=== PATIENT | female | born 1940 | race Caucasian/White ===

== ENCOUNTER 2017-05-03 15:30 | Inpatient (IN) | payer OTHER, BC ==
--- NOTE | 2017-05-03 15:47 | EDPHY ---
H & P Time Seen by Provider: 05/03/17 15:46 HPI/ROS: CHIEF COMPLAINT: Cough HISTORY OF PRESENT ILLNESS: 77 y/o female presents with a chief complaint of worsening cough for 1 month. 1 month ago she moved to [place] from [place]. Since arrival, she has developed a frequent cough, productive of greenish sputum. Yesterday, she was diagnosed with bronchitis at [facility] urgent care. Apparently, chest x-ray yesterday was negative for pneumonia. She received a prescription for penicillin and for albuterol. Since then, she continues to have a frequent cough, which keeps her awake at night. Associated with mild shortness of breath. Denies fever, chills, chest pain or other pertinent symptoms. REVIEW OF SYSTEMS: Aside from elements discussed in the HPI, a comprehensive 10-point review of systems was reviewed and is negative. Past Medical/Surgical History: Sciatica, hypertension, breast cancer, multiple back surgeries, pneumonia Social History: at bedside, moved to [place] from [place], former smoker Smoking Status: Former smoker Physical Exam: General Appearance: Alert, pleasant and talkative Eyes: Pupils equal and round, no conjunctival pallor or injection ENT, Mouth: Mucous membranes moist Neck: Normal inspection Respiratory: Normal respiratory rate, Diffuse respiratory wheezing Cardiovascular: Regular rate and rhythm Gastrointestinal: Abdomen is soft and non-tender Neurological: A&O, nonfocal, normal gait Skin: Warm and dry, no rash Extremities: Nontender, no pedal edema Psychiatric: Mood and affect normal Constitutional: Initial Vital Signs Temperature (C) 37.3 C 05/03/17 15:36 Heart Rate 100 05/03/17 15:36 Respiratory Rate 20 05/03/17 15:36 Blood Pressure 146/99 H 05/03/17 15:36 O2 Sat (%) 98 05/03/17 15:36 O2 Delivery Mode Nasal Cannula O2 (L/minute) 3 Allergies/Adverse Reactions: Sulfa (Sulfonamide Antibiotics) [Sulfa(Sulfonamide Antibiotics)] Allergy ( Unknown, Verified 05/03/17 15:33) Hives bupropion [From Wellbutrin] Allergy (Verified 05/03/17 15:33) Home Medications: Medication Instructions Recorded Albuterol [Ventolin Hfa Inhaler] 2 puffs IH Q4-6PRN PRN 05/03/17 CYCLOBENZAPRINE HCL [Flexeril] 5 mg PO HS 05/03/17 Desvenlafaxine Succinate [Pristiq] 100 mg PO DAILY 05/03/17 Fluticasone Hfa 110 Mcg [Flovent 2 puffs IH BID 05/03/17 110 MCG Hfa MDI (*)] Gabapentin [Neurontin 300 MG (*)] 300 mg PO BID@09,14 05/03/17 Gabapentin [Neurontin 300 MG (*)] 900 mg PO HS 05/03/17 HYDROcodone/APAP [[place] 1 - 2 tab PO Q6 PRN 05/03/17 (*)] LORazepam [Ativan (*)] 0.5 mg PO HS 05/03/17 Lisinopril [Zestril 40 mg (*)] 40 mg PO DAILY 05/03/17 Penicillin V Potassium [Penicillin 500 mg PO BID 05/03/17 VK] Pravastatin Sodium [Pravachol] 80 mg PO HS 05/03/17 amLODIPine BESYLATE [Norvasc 5 mg 5 mg PO DAILY 05/03/17 (*)] Azithromycin [Zithromax] 250 mg PO DAILY #2 tab 05/06/17 Benzonatate [Tessalon Pearles] 200 mg PO TID PRN #14 cap 05/06/17 predniSONE 40 mg PO DAILY #6 tablet 05/06/17 Medical Decision Making - Diagnostics EKG Interpretation: EKG interpreted by me reveals normal sinus rhythm with a rate of 98, normal axis , normal intervals, diffuse ST segment changes, and T segment normal. Interpretation: normal EKG Imaging Results: Chest x-ray discussed with the radiologist reveals a 4 cm left lower lobe mass. No infiltrate. Imaging: Discussed imaging studies w/ body maker Radiologist, I viewed and interpreted images myself ED Course/Re-evaluation: The patient is a 77 y/o female presenting with a worsening cough for several weeks. On exam she has diffuse respiratory wheezing. A DuoNeb was given. Prednisone 60 mg orally. EKG reveals no evidence of ischemia or dysrhythmia. She continues to have diffuse wheezing after the 1st DuoNeb. An albuterol nebulized treatment was given. 1700: Oxygen saturation 87% after 2 nebulizer treatments. Chest x-ray ordered. 1702: Chest x-ray results discussed the patient and her . They aware of the right lower lobe mass and need for further follow-up. She remains hypoxic, with an oxygen saturation of 86% on room air. Oxygen applied. She is a long-time smoker and probably has underlying COPD. She will need to be admitted for hypoxia and COPD exacerbation. 1759: Reassessed patient and discussed plan for admission. Patient and her are comfortable with this plan. 1800: Consulted with hospitalist service, Dr. Davis accepts admission of this patient. The patient remained stable throughout her emergency department stay. She felt much better on oxygen, though continued to have diffuse wheezing and bronchospasm. Differential Diagnosis: Differential diagnosis includes though it is not limited to pneumonia, pneumothorax, pulmonary embolism, aortic dissection, pericarditis, acute coronary syndrome. - Data Points Laboratory Results: Laboratory Results 05/03/17 16:00 05/03/17 16:00 Medications Given: Discontinued Medications Hydrocodone Bitart/Acetaminophen ([place] 10/325) 1 - 2 tab PO Q6 PRN PRN Reason: Pain, Severe Stop: 05/13/17 21:32 Last Admin: 05/04/17 23:07 Dose: 2 tab Albuterol (Proventil Neb) 3 ml IH EDNOW ONE Stop: 05/03/17 16:37 Last Admin: 05/03/17 16:38 Dose: 3 ml Albuterol (Proventil Neb) 3 ml IH EDNOW ONE Stop: 05/03/17 17:03 Last Admin: 05/03/17 17:24 Dose: 3 ml Albuterol (Ventolin Hfa Inhaler) 2 puffs IH Q4 PRN PRN Reason: Wheezing Stop: 10/30/17 21:32 Last Admin: 05/06/17 08:52 Dose: 2 puffs Albuterol/Ipratropium (Duoneb) 3 ml IH EDNOW ONE Stop: 05/03/17 16:12 Last Admin: 05/03/17 16:20 Dose: 3 ml Amlodipine Besylate (Norvasc) 5 mg PO DAILY ASTRID Stop: 10/31/17 11:44 Last Admin: 05/06/17 09:20 Dose: 5 mg Azithromycin (Zithromax) 250 mg PO DAILY ASTRID PRN Reason: Protocol Stop: 06/03/17 08:59 Last Admin: 05/06/17 09:21 Dose: 250 mg Cyclobenzaprine HCl (Flexeril) 5 mg PO HS ASTRID Stop: 10/30/17 21:59 Last Admin: 05/05/17 20:44 Dose: 5 mg Enoxaparin Sodium (Lovenox) 40 mg SC DAILY ASTRID Stop: 10/31/17 08:59 Last Admin: 05/06/17 09:20 Dose: 40 mg Fentanyl (Sublimaze) 0 mcg IVP ONCALL PRN PRN Reason: Per provider during procedure Stop: 05/05/17 10:40 Last Admin: 05/05/17 10:08 Dose: 50 mcg Fluticasone Propionate (Flovent Hfa) 2 puffs IH BID ASTRID Stop: 10/31/17 08:59 Last Admin: 05/06/17 08:52 Dose: 2 puffs Gabapentin (Neurontin) 900 mg PO HS ASTRID Stop: 10/30/17 21:44 Last Admin: 05/05/17 20:43 Dose: 900 mg Gabapentin (Neurontin) 300 mg PO BID@09,14 ASTRID Stop: 10/31/17 08:59 Last Admin: 05/06/17 09:20 Dose: 300 mg Sodium Chloride (Ns) 1,000 mls @ 30 mls/hr IV CONT ASTRID Stop: 11/01/17 09:44 Last Admin: 05/05/17 10:10 Dose: 1,000 mls Lisinopril (Zestril) 40 mg PO DAILY ASTRID Stop: 10/31/17 08:59 Last Admin: 05/06/17 09:20 Dose: 40 mg Lorazepam (Ativan) 0.5 mg PO HS ASTRID Stop: 10/31/17 20:59 Last Admin: 05/05/17 20:44 Dose: 0.5 mg Midazolam HCl (Versed) 0 mg IVP ONCALL PRN PRN Reason: Per provider during procedure Stop: 05/05/17 10:40 Last Admin: 05/05/17 10:07 Dose: 1 mg Miscellaneous Medication (Desvenlafaxine Succinate [Pristiq]) 100 mg PO DAILY ASTRID Stop: 10/31/17 08:59 Last Admin: 05/06/17 09:21 Dose: 100 mg Pravastatin Sodium (Pravachol) 80 mg PO HS ASTRID Stop: 10/30/17 21:44 Last Admin: 05/05/17 20:43 Dose: 80 mg Prednisone (Prednisone) 60 mg PO EDNOW ONE Stop: 05/03/17 16:12 Last Admin: 05/03/17 16:20 Dose: 60 mg Prednisone (Prednisone) 40 mg PO DAILY ASTRID Stop: 10/31/17 08:59 Last Admin: 05/06/17 09:20 Dose: 40 mg Departure - Departure Disposition: [facility] Inpatient Acute Clinical Impression: Bronchospasm, Chronic obstructive pulmonary disease with acute exacerbation Acute bronchitis Qualifiers: Bronchitis organism: other organism Qualified Code(s): J20.8 - Acute bronchitis due to other specified organisms Condition: Fair Report Scribed for: Minerva Villatoro Report Scribed by: Deana Dominguez Date of Report: 05/03/17 Time of Report: 15:47 Physician Review and Approval Statement: 05/03/17 15:47 Portions of this note were transcribed by a vp medical. I personally performed a history, physical exam, medical decision making, and confirmed accuracy of information the transcribed note.
[2017-05-03] MEDS ORDERED: IPRATROPIUM/ALBUTEROL 3 ML DEYVIAL ONE (15:53)
--- NOTE | 2017-05-03 16:01 | CPEKG ---
Heart Rate: 98 RR Interval: 612 P-R Interval: 116 QRSD Interval: 84 QT Interval: 360 QTC Interval: 460 P Rippey: 0 QRS Rippey: 37 T Wave Rippey: 148 EKG Severity - ABNORMAL ECG - EKG Impression: SINUS RHYTHM EKG Impression: REPOL ABNRM SUGGESTS ISCHEMIA, DIFFUSE LEADS EKG Impression: Similar to EKG in December 2011 Electronically Signed By: Minerva Villatoro 03-May-2017 21:32:27
[2017-05-03] MEDS ORDERED: predniSONE 20 MG TAB PO ONE (16:11)
[2017-05-03] MEDS ORDERED: IPRATROPIUM/ALBUTEROL 3 ML DEYVIAL IH ONE (16:11)
[2017-05-03] MEDS ORDERED: ALBUTEROL 3 ML DEYVIAL IH ONE ×2 (16:36→17:02)
[2017-05-03 17:12] LABS: % IMMATURE GRANULYOCYTES 0.4 % (0.0-1.1); ABSOLUTE IMMATURE GRANULOCYTES 0.04 10^3/uL (0.00-0.10); ADD DIFF? NO; ADD MORPH? NO; ADD SCAN? NO; ATYPICAL LYMPHOCYTE FLAG 0 (0-99); FRAGMENT RBC FLAG 0 (0-99); HEMOGLOBIN 14.6 g/dL (12.6-16.3); LEFT SHIFT FLG 0 (0-99); LIPEMIA HEMOLYSIS FLAG 80 (0-99); MEAN CELL HEMOGLOBIN 29.1 pg (27.9-34.1); MEAN CELL HEMOGLOBIN CONCENTR. 33.2 g/dL (32.4-36.7); MEAN CELL VOLUME 87.8 fL (81.5-99.8); PLATELET CLUMPS FLAG 0 (0-99); PLATELET COUNT 344 10^3/uL (150-400); RED BLOOD CELL COUNT 5.01 10^6/uL (4.18-5.33); RED CELL DISTRIBUTION WIDTH 14.3 % (11.5-15.2)
[2017-05-03 17:15] LABS: ANION GAP 13 mEq/L (8-16); CALCIUM 9.6 mg/dL (8.5-10.4); CARBON DIOXIDE 23 mEq/l (22-31); CHLORIDE 104 mEq/L (97-110); CREATININE 0.9 mg/dL (0.6-1.0); GLOMERULAR FILTRATION RATE > 60; GLUCOSE 94 mg/dL (70-100); SODIUM 140 mEq/L (134-144)
[2017-05-03] MEDS ORDERED: ONDANSETRON 4 MG/2 ML VIAL IVP PRN (18:00)
[2017-05-03] MEDS ORDERED: ONDANSETRON DISINTEGRATING 4 MG TAB PO PRN (18:00)
[2017-05-03] MEDS ORDERED: ACETAMINOPHEN 325 MG TAB PO PRN (18:00)
[2017-05-03] MEDS ORDERED: IPRATROPIUM/ALBUTEROL 3 ML DEYVIAL IH PRN (18:01)
[2017-05-03] MEDS ORDERED: IOPAMIDOL (ISOVUE-300) 100 ML BTL ONE (18:04)
[2017-05-03] MEDS ORDERED: BENZONATATE 100 MG CAP PO PRN (19:19)
--- NOTE | 2017-05-03 20:27 | GHP ---
[f rep st] HISTORY AND PHYSICAL DATE OF ADMISSION: 05/03/2017 CHIEF COMPLAINT: Shortness of breath, cough. HISTORY OF PRESENT ILLNESS: A 77-year-old female with a history of hypertension , breast cancer, status post XRT and lumpectomy, presenting with worsening cough for several weeks. She moved here from [place] 1 month ago. Noted a cough prior to the move. Has developed greenish-yellow sputum this past week. Seen at [facility] yesterday and diagnosed with bronchitis. Was prescribed inhalers and PCN. Denies fevers, chills, or sweats. No nausea, vomiting. Had an episode of diarrhea today after taking penicillin. She is to see a cancer specialist in [place] per referral from [facility] for kidney cancer. She was unclear if it was actually her kidney or her urethra. No weight loss or gain. Normal appetite. REVIEW OF SYSTEMS: I completed a 10-point review of systems. Negative, except as noted in HPI. PAST MEDICAL HISTORY: 1. Hypertension. 2. Anxiety/depression. 3. Hyperlipidemia. 4. Sciatica. 5. History of breast cancer, status post left-sided lumpectomy and XRT. 6. Renal cancer, unclear type. Appt this month in [place]. PAST SURGICAL HISTORY: 1. Left ankle, right femur with hardware that was revised. 2. L4-L5. 3. A breast reduction. 4. Left breast lumpectomy. FAMILY HISTORY: Mother with hypertension. Dad with hypertension. SOCIAL HISTORY: Smoked less than half-a-pack a day for 50 years; now smoking half-a-pack a day. Minimal alcohol. No drugs. Just moved here from [place] with her . They live in an apartment here in [place] to be closer to kids and grandchildren. HOME MEDICATIONS: 1. Norvasc 5 mg daily. 2. Flovent 2 puffs inhaled b.i.d. 3. Gabapentin 900 mg q.h.s. 4. Flexeril as needed. 5. Lisinopril 40 mg daily. 6. Ativan 0.5 mg q.h.s. 7. [place] 10/325 one to two tabs p.o. q.6 hours p.r.n. 8. Gabapentin 300 mg b.i.d. 9. Penicillin. 10. Pravastatin 80 mg q.h.s. 11. Pristiq 100 mg daily. 12. Albuterol. ALLERGIES: Sulfa, Wellbutrin. PHYSICAL EXAMINATION: VITAL SIGNS: Temperature 36.7, blood pressure 104/69, heart rate 90, respirations 24, 87% on room air, 94% on 3 L. GENERAL: Sitting up in bed in no acute distress. HEENT: PERRLA. EOMI. Oropharynx clear. CV: Regular rate and rhythm. No murmurs, gallops, rubs. LUNGS: Decreased breath sounds throughout with expiratory wheezing and few rhonchi. ABDOMEN: Soft, nontender, nondistended. Positive bowel sounds. : No suprapubic tenderness. MUSCULOSKELETAL: Right hand deformity ( defect). NEUROLOGIC : Cranial nerves 2 through 12 intact. PSYCHIATRIC: Alert and oriented. Very pleasant. LABORATORY DATA: WBC 9, hemoglobin 14, hematocrit 44, platelets 344. Sodium 140, potassium 4.0, chloride 104, carbon dioxide 23, creatinine 0.9, glucose 94. BNP is 138. Chest x-ray, personally reviewed by me: Left lower lobe mass. No evidence of edema or effusion. CT chest, personally reviewed by me: A 4 cm pulmonary mass suspicious for carcinoma. No regional lymphadenopathy or metastatic disease of the chest or upper abdomen. Bronchitis. Three-vessel calcification and an atherosclerotic aorta. ASSESSMENT AND PLAN: 1. Acute chronic obstructive pulmonary disease exacerbation: no formal diagnosis, but suspect, given significant tobacco history. Trigger likely bronchitis, no PNA on imaging. Start prednisone, DuoNeb, and azithromycin. Cough suppressant. 2. Left lung mass: no evidence of metastatic disease in chest or abdomen. She wants to talk with family on timing of biopsy since already dealing with renal cancer.. 3. Renal cancer: unclear whether it is primary kidney or urethral. She has a followup appointment later this month. 4. Hypertension: Resume home medications. 5. Anxiety/depression: Continue home medications. 6. Hyperlipidemia: Statin. 7. Diet: Regular. 8. Deep venous thrombosis prophylaxis: High risk. Lovenox. 9. Goals: I explained the role of Palliative Care given her renal cancer and new lung mass. She would be interested in meeting with a group outpatient, Will have CM arrange. DISPOSITION: The patient warrants observation admission given acute hypoxia, COPD exacerbation, warranting DuoNeb and pulse oximetry. /[id number]/MODL MTDD
[2017-05-03] MEDS ORDERED: amLODIPine BESYLATE 5 MG TAB PO PRN (21:33)
[2017-05-03] MEDS ORDERED: HYDROCODONE/APAP 10/325 TAB PO PRN (21:33)
[2017-05-03] MEDS: PRAVASTATIN SODIUM 40 MG TAB PO SCH (21:46)
[2017-05-03] MEDS: GABAPENTIN 300 MG CAP PO SCH (21:46)
[2017-05-03] MEDS: CYCLOBENZAPRINE 10 MG TAB PO SCH (21:47)
[2017-05-04] MEDS: ALBUTEROL 200 PUFFS/18 GM MDI IH PRN ×2 (08:47→21:27)
[2017-05-04] MEDS: FLUTICASONE HFA 110 MCG MDI IH SCH ×2 (08:55→21:27)
[2017-05-04] MEDS: ENOXAPARIN 40 MG/0.4 ML SYR SC SCH (09:18)
[2017-05-04] MEDS: AZITHROMYCIN 250 MG TAB PO SCH (09:18)
[2017-05-04] MEDS: GABAPENTIN 300 MG CAP PO SCH ×3 (09:19→20:49)
[2017-05-04] MEDS: LISINOPRIL 40 MG TAB PO SCH (09:19)
[2017-05-04] MEDS: predniSONE 20 MG TAB PO SCH (09:19)
[2017-05-04] MEDS: Desvenlafaxine Succinate [Pristiq] 100 MG PO SCH (09:27)
--- NOTE | 2017-05-04 12:25 | PDMN ---
Medical Necessity Medical necessity: Pt meets IP criteria per MD; est los >2 mn for eval/tx of acute hypoxia, COPD exacerbation & L lung mass; hx htn, renal cancer, breast cancer s/p lumpectomy & XRT; per H&P & order 05/03/17
[2017-05-04] MEDS: amLODIPine BESYLATE 5 MG TAB PO SCH (13:24)
--- NOTE | 2017-05-04 13:49 | HOSPPROG ---
Hospitalist Progress Note Assessment/Plan: 77y female with c/o SOB and cough. First encounter, chart reviewed. D/W Dr Julian. #New lung mass per CT consult oncology likely need bx, defer to oncology #COPD exacerbation supportive care prednisone, azithro and duoneb #AHRF cont supplemental oxygen #Hx renal ca follow up scheduled at [place] needs urology #HTN mild elevation cont home meds, norvasc lisinopril consider adding meds if needed #Anxiety/depression cont home meds #Dispo unclear, continue work up in the hospital. consider biopsy if o2 needs improve await oncology consult reviewed with CM pt new to [place], needs to establish care Palliative care outpatient Subjective: Feeling better then yesterday. Still coughing and SOB. Objective: Vital Signs Temp Pulse Resp BP Pulse Ox 36.8 C 88 20 158/91 H 94 05/04/17 11:52 05/04/17 11:52 05/04/17 11:52 05/04/17 11:52 05/04/17 11:52 - Physical Exam Constitutional: appears nourished, not in pain, chronically ill appearing Eyes: PERRL, anicteric sclera, EOMI Ears, Nose, Mouth, Throat: moist mucous membranes, hearing normal, ears appear normal Cardiovascular: regular rate and rhythym, No JVD, No edema Respiratory: no rales or rhonchi, reduced air movement, expiratory wheeze Gastrointestinal: normoactive bowel sounds, No tenderness, No ascites Skin: warm, normal color, No erythema Musculoskeletal: normal joint ROM, no joint effusions, generalized weakness Neurologic: AAOx3 Psychiatric: interacting appropriately, not encephalopathic, thought process linear ICD10 Worksheet Patient Problems: Problems Problem Status Onset Acute bronchitis Acute Bronchospasm Acute Chronic obstructive pulmonary disease with acute exacerbation Acute
[2017-05-04 14:08] LABS: INR 0.99 (0.83-1.16)
[2017-05-04 14:09] LABS: APTT 33.3 SEC (23.0-38.0)
[2017-05-04] MEDS ORDERED: IOPAMIDOL (ISOVUE-300) 100 ML BTL ONE (15:07)
--- NOTE | 2017-05-04 15:36 | GCON ---
[f rep st] CONSULTATION INPATIENT ONCOLOGY CONSULTATION DATE OF CONSULTATION: 05/04/2017 REFERRING PHYSICIAN: Dr. Becker REASON FOR CONSULTATION: Left lower lung mass. HISTORY OF PRESENT ILLNESS: The patient is a 77-year-old woman admitted to the hospital with a COPD exacerbation and viral bronchitis. She has been feeling poorly for a couple of days and was admitted. Chest x-ray showed bronchitis but also a 4 cm left lower lobe mass. A CT chest showed the same mass without evidence of hilar or mediastinal adenopathy. There was coronary artery disease and reactive airway disease. She is feeling somewhat better. Prior to her lung infection, she did not have any symptoms. She does have a remote history of breast cancer in 2000 which was treated with lumpectomy, radiation therapy, and anti-estrogen therapy. Recently, she was noted to have what sounds like a renal cyst. She had a biopsy at [facility], though does not know what the results showed. They did recommend that she follow with a urologist later this month. That problem presented because of some hematuria, which has since resolved. PAST MEDICAL HISTORY: 1. Breast cancer described above. 2. Renal cyst, indeterminate, as described above. CURRENT MEDICATIONS: Albuterol, Norvasc, azithromycin, Tessalon Perles, Flexeril, Lovenox, Neurontin, Zestril, Ativan, Pravachol, prednisone 40 mg daily. ALLERGIES: Sulfa. FAMILY HISTORY: A maternal uncle may have had cancer of some type. SOCIAL HISTORY: She smokes half a pack per day, but says she is quitting. She denies alcohol use. She is . She and her moved here a month ago to live closer to family, including their youngest daughter, who was present for today's visit. REVIEW OF SYSTEMS: Aside from pertinent positives in the HPI, a 14-point review of systems was negative. PHYSICAL EXAMINATION: VITALS: Temperature 36.8, blood pressure 158/91, heart rate 88, oxygen saturation 94% on 3 L. GENERAL: She was chronically ill, breathing comfortably, in no acute distress. HEENT: Sclerae icteric. Oropharynx was clear. NECK: Supple without lymphadenopathy. LUNGS: Scattered wheezes bilaterally and somewhat distant breath sounds. CARDIAC: Regular rate and rhythm. No murmurs, gallops, or rubs. ABDOMEN: Normoactive bowel sounds, nontender, nondistended. EXTREMITIES: Without edema, 2+ pulses. NEUROLOGIC: She was alert and oriented x3. SKIN: No petechiae or purpura. LABORATORY DATA: A CBC and a basic metabolic panel were normal. IMPRESSION: This is a 77-year-old woman, current smoker, who presents with a viral bronchitis and chronic obstructive pulmonary disease flare. She was incidentally noted to have a nearly 4 cm mass in the left lower lobe. This is highly suspicious for bronchogenic carcinoma. It would be a very unusual manifestation for her breast cancer to metastasize 16 years later in this fashion. I do not have complete information on her renal cyst, but that also is not likely to be related to lung cancer. I will get another CT of the abdomen to look for evidence of metastasis and also to better characterize the kidney process. The next step in her care would be to get a biopsy of the tumor. If confirmed, she would need a PET CT scan in the outpatient setting for mediastinal staging, and further therapy such as surgery, radiation, or chemotherapy would be dictated based on the stage of the cancer and its biology. I would like to get the biopsy done while the patient is in the hospital, though she certainly does not need to stay here to await the results. Rather, when she is stable for discharge, she can go home and see me in clinic next week to review the biopsy results. I will also refer to Urology for further evaluation of her renal process. Thank you for this consultation. It was a pleasure to meet the patient, and I appreciate the opportunity to be involved in her care. I will continue to follow the patient with you while she is in the hospital. /[id number]/MODL MTDD
--- NOTE | 2017-05-04 18:11 | ASMTCMCOM ---
CM Note CM Note Notes: Pt. is a 77-year-old woman admitted with shortness of breath and a cough. Experiencing a COPD exascerbation. Hx. renal cell cancer, breast cancer, back surgeries, PNA, anxiety, depression, hyperlipidemia. Pt. is a 1/2 pack a day smoker. Pt. to have a lung biopsy tomorrow to determine if cancer has spread to lung. At request of hospitalist today, SWer met w/ Pt. and family in room to assess for resources. Simone is very organized and pleasant. Daughter Laura present and also very engaged. Pt. and moved to [place] recently from [place] to be closer to family. Pt. and are pleased to have moved and it was not a decision where they felt they had to move. Pt. was getting her care at [facility]. Pt. interested in and provided the following resources today: 1) List of [facility] primary care providers, 2) List of psychiatrists (Pt. has paid out of pocket in past for psychiatry), 3) List of psychotherapists, 4) Information on [facility], and information about [facility]. At Pt's request, referral sent to [facility] via [facility] Pt. and family grateful for resources. Current plan: D/c home w/ outpatient Palliative Care through [facility]. Date Signed: 05/04/2017 06:10 PM Electronically Signed By:Ilene Deshpande LCSW
[2017-05-04] MEDS: CYCLOBENZAPRINE 10 MG TAB PO SCH (20:48)
[2017-05-04] MEDS: PRAVASTATIN SODIUM 40 MG TAB PO SCH (20:50)
[2017-05-04] MEDS: LORazepam 0.5 MG TAB PO SCH (20:50)
[2017-05-05] MEDS: AZITHROMYCIN 250 MG TAB PO SCH (07:14)
[2017-05-05] MEDS: amLODIPine BESYLATE 5 MG TAB PO SCH (07:14)
[2017-05-05] MEDS: LISINOPRIL 40 MG TAB PO SCH (07:14)
[2017-05-05] MEDS ORDERED: NALOXONE HCL 0.4 MG/ML INJ ONE (08:50)
[2017-05-05] MEDS ORDERED: MIDAZOLAM 2 MG/2 ML VIAL ONE (08:51)
[2017-05-05] MEDS ORDERED: fentaNYL 100 MCG/2 ML INJ ONE (08:51)
[2017-05-05] MEDS ORDERED: FLUMAZENIL 0.5 MG/5 ML MDV IVP ONE (08:51)
[2017-05-05] MEDS ORDERED: fentaNYL 100 MCG/2 ML INJ IVP PRN (09:39)
[2017-05-05] MEDS ORDERED: GLUCAGON HCL 1 MG VIAL IVP PRN (09:39)
[2017-05-05] MEDS ORDERED: NALOXONE HCL 0.4 MG/ML INJ IVP PRN (09:39)
[2017-05-05] MEDS ORDERED: MEPERIDINE 25 MG/ML SYR IVP PRN (09:39)
[2017-05-05] MEDS ORDERED: FLUMAZENIL 0.5 MG/5 ML MDV IVP PRN (09:39)
[2017-05-05] MEDS ORDERED: MIDAZOLAM 2 MG/2 ML VIAL IVP PRN (09:39)
[2017-05-05] MEDS ORDERED: ALTEPLASE 2 MG VIAL IVP PRN (09:39)
[2017-05-05] MEDS ORDERED: PROTAMINE SULFATE 50 MG/5 ML VIAL IVP PRN (09:39)
[2017-05-05] MEDS ORDERED: HEPARIN 10,000 UNIT/10 ML MDV IVP PRN (09:39)
[2017-05-05] MEDS ORDERED: NS 1,000 ML IV SCH (09:45)
[2017-05-05] MEDS: FLUTICASONE HFA 110 MCG MDI IH SCH ×2 (10:05→21:27)
--- NOTE | 2017-05-05 10:17 | PDPROPOC ---
Sedation Plan of Care Sedation Plan of Care: vital signs stable, mental status noted, patient educated of risks, benefits, alternatives, patient can tolerate sedation ASA Classification: ASA 3 Planned drugs: fentanyl, midazolam Mallampati Score: Class 4 Mallampati Reference Image: Patient passed 3-3-2 rule?: Yes
--- NOTE | 2017-05-05 10:20 | PDRADPN ---
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 Specimen(s): 20 ga Cores X 6 22 ga FNAB X 1
[2017-05-05] MEDS: Desvenlafaxine Succinate [Pristiq] 100 MG PO SCH (12:12)
[2017-05-05] MEDS: GABAPENTIN 300 MG CAP PO SCH ×3 (12:13→20:43)
[2017-05-05] MEDS: predniSONE 20 MG TAB PO SCH (12:13)
--- NOTE | 2017-05-05 12:56 | HOSPPROG ---
Hospitalist Progress Note Assessment/Plan: Assessment/Plan: 77 y/o female with c/o SOB and cough new to my care 05/05. #New lung mass consult oncology biopsy done today 05/05 #COPD exacerbation with persistent wheezing supportive care prednisone, azithro and duoneb #AHRF cont supplemental oxygen #Hx renal ca follow up scheduled at [place] needs urology #HTN mild elevation cont home meds, norvasc lisinopril consider adding meds if needed #Anxiety/depression cont home meds #Dispo possible dc 05/06 if continues to improve Palliative care outpatient Subjective: still with sweezing and shortness of breath. had biospy today. does not feel strong enough to go home Objective: Vital Signs Temp Pulse Resp BP Pulse Ox 36.6 C 86 16 111/78 83 L 05/05/17 12:11 05/05/17 12:11 05/05/17 12:11 05/05/17 12:11 05/05/17 12:11 PT 13.0 SEC (12.0-15.0) 05/04/17 13:45 INR 0.99 (0.83-1.16) 05/04/17 13:45 - Physical Exam Constitutional: no apparent distress, appears nourished, not in pain Cardiovascular: regular rate and rhythym, no murmur, rub, or gallop Respiratory: reduced air movement, expiratory wheeze, No respiratory distress, No dullness to percussion Gastrointestinal: normoactive bowel sounds, soft, non-tender abdomen, no palpable masses ICD10 Worksheet Patient Problems: Problems Problem Status Onset Acute bronchitis Acute Bronchospasm Acute Chronic obstructive pulmonary disease with acute exacerbation Acute
--- NOTE | 2017-05-05 13:16 | SOAPPROG ---
SOAP Progress Note Assessment/Plan: Assessment: 1. LLL mass, likely lung cancer 2. History of ?ureteral cyst or lesion. CT abd/pelvis unremarkable 3. Parainfluenza infection Plan: - ok to d/c from my perspective - f/u with me next week in clinic to review Bx results. if malignant, will need PET-CT to stage and likely surgical resection 05/05/17 13:14 Subjective: feeling better. Objective: exam unchanged Vital Signs Temp Pulse Resp BP Pulse Ox 36.6 C 86 16 111/78 83 L 05/05/17 12:11 05/05/17 12:11 05/05/17 12:11 05/05/17 12:11 05/05/17 12:11 PT 13.0 SEC (12.0-15.0) 05/04/17 13:45 INR 0.99 (0.83-1.16) 05/04/17 13:45 ICD10 Worksheet Patient Problems: Problems Problem Status Onset Acute bronchitis Acute Bronchospasm Acute Chronic obstructive pulmonary disease with acute exacerbation Acute
--- NOTE | 2017-05-05 18:04 | ASMTCMCOM ---
CM Note CM Note Notes: Today Bryannar met w/ family in the room - Pt., Simone, and daughter Laura. Family had more questions. Discussed choices about care and various resources. Family grateful for the time. Likely d/c tomorrow. Current plan: [facility] RN, PT, OT. Also, outpatient Palliative Care with [facility] . Please notify [facility] when Pt. discharges and ask for visit sooner than later. Date Signed: 05/05/2017 06:03 PM Electronically Signed By:Ilene Deshpande LCSW
[2017-05-05] MEDS: PRAVASTATIN SODIUM 40 MG TAB PO SCH (20:43)
[2017-05-05] MEDS: LORazepam 0.5 MG TAB PO SCH (20:44)
[2017-05-05] MEDS: CYCLOBENZAPRINE 10 MG TAB PO SCH (20:44)
[2017-05-05] MEDS: ALBUTEROL 200 PUFFS/18 GM MDI IH PRN (21:27)
[2017-05-06] MEDS: ALBUTEROL 200 PUFFS/18 GM MDI IH PRN (08:52)
[2017-05-06] MEDS: FLUTICASONE HFA 110 MCG MDI IH SCH (08:52)
--- NOTE | 2017-05-06 09:15 | PDHOMEO2F ---
Home Oxygen Face to Face Home Orders: I certify that a physician or a nurse practitioner or physician's floor covering printer assistant has had a [id number] encounter with this patient on the date of this order due to the diagnosis listed, which relates to the primary reason the patient requires home oxygen. Alternative treatments have been tried, or considered, and deemed ineffective. It is anticipated that supplemental oxygen will result in improvement with treatment. Home oxygen qualifying diagnosis: copd exacerbation SpO2 on room air (%): 85 Frequency of home oxygen needed: continuous Home oxygen liters per minute: 2 Home oxygen delivery device: nasal cannula Concentrator: Yes E-tanks for mobility and back up: Yes If ordering portable O2, is the patient mobile in the home?: Yes I certify that, based on these findings, the home oxygen is medically necessary for this patient for the following length of time. Length of time home oxygen needed: 99 years
[2017-05-06] MEDS: ENOXAPARIN 40 MG/0.4 ML SYR SC SCH (09:20)
[2017-05-06] MEDS: LISINOPRIL 40 MG TAB PO SCH (09:20)
[2017-05-06] MEDS: GABAPENTIN 300 MG CAP PO SCH (09:20)
[2017-05-06] MEDS: predniSONE 20 MG TAB PO SCH (09:20)
[2017-05-06] MEDS: amLODIPine BESYLATE 5 MG TAB PO SCH (09:20)
[2017-05-06] MEDS: AZITHROMYCIN 250 MG TAB PO SCH (09:21)
[2017-05-06] MEDS: Desvenlafaxine Succinate [Pristiq] 100 MG PO SCH (09:21)
--- NOTE | 2017-05-06 09:31 | PDIAF ---
- Diagnosis Diagnosis: copd exacerbation Code Status: Full Code - Medication Management Discharge Medications: Medications to Continue on Transfer Albuterol [Ventolin Hfa Inhaler] 2 puffs IH Q4-6PRN PRN 05/03/17 [Last Taken 02/09 09:00] CYCLOBENZAPRINE HCL [Flexeril] 5 mg PO HS 05/03/17 [Last Taken 05/02/17] Desvenlafaxine Succinate [Pristiq] 100 mg PO DAILY 05/03/17 [Last Taken 05/03/17 ] Fluticasone Hfa 110 Mcg [Flovent 110 MCG Hfa MDI (*)] 2 puffs IH BID 05/03/17 [ Last Taken Unknown] Gabapentin [Neurontin 300 MG (*)] 300 mg PO BID@05/03/17 [Last Taken 05/02 14:00] Gabapentin [Neurontin 300 MG (*)] 900 mg PO HS 05/03/17 [Last Taken 05/02/17] HYDROcodone/APAP 10/325 [Dana 10/325 (*)] 1 - 2 tab PO Q6 PRN 05/03/17 [Last Taken 2 Days Ago ~05/01/17] LORazepam [Ativan (*)] 0.5 mg PO HS 05/03/17 [Last Taken 05/02/17] Lisinopril [Zestril 40 mg (*)] 40 mg PO DAILY 05/03/17 [Last Taken 05/03/17] Penicillin V Potassium [Penicillin VK] 500 mg PO BID 05/03/17 [Last Taken 09:00] Pravastatin Sodium [Pravachol] 80 mg PO HS 05/03/17 [Last Taken 05/02/17] amLODIPine BESYLATE [Norvasc 5 mg (*)] 5 mg PO DAILY 05/03/17 [Last Taken ] Azithromycin [Zithromax] 250 mg PO DAILY #2 tab 05/06/17 [Last Taken Unknown] Benzonatate [Tessalon Pearles] 200 mg PO TID PRN #14 cap 05/06/17 [Last Taken Unknown] predniSONE 40 mg PO DAILY #6 tablet 05/06/17 [Last Taken Unknown] Discharge Medications: Refer to the Discharge Home Medication list for PRN reason. - Orders Services needed: Home Care, Registered Nurse, Physical Therapy, Occupational Therapy Home Care Face to Face: I certify that this patient was under my care and that I had the required [id number] encounter meeting the encounter requirements on the discharge day. My findings support the fact that the patient is homebound as defined in Home Care Face to Face Continued: [facility] Chapter 7 Medicare Benefits Manual 30.1.1 , The condition of the patient is such that there exists a normal inability to leave home and consequently, leaving home would require a considerable and taxing effort. Isolation Type: Droplet Isolation Diet Recommendation: no restrictions on diet Diet Texture: Regular Texture Diet - Follow Up Care Current Providers and Referrals: Omer Marshall MD [Medical Doctor] - As per Instructions
--- NOTE | 2017-05-06 10:07 | GDS ---
[f rep st] DISCHARGE SUMMARY DISCHARGE DIAGNOSES: 1. Chronic obstructive pulmonary disease exacerbation, likely due to rhinovirus/enterovirus upper re spiratory infection. 2. New lung mass, status post biopsy done 05/05/2017. 3. Acute hypoxic respiratory failure. 4. History of renal cancer. 5. Hypertension. 6. Anxiety/depression. CONSULTANTS: Dr. Yazan Julian, oncology. Dr. Gary Nova, interventional radiology. HOSPITAL COURSE AND STAY BY PROBLEM: Acute hypoxemic respiratory failure in the setting of COPD exac erbation from a viral URI: The patient presented to the emergency department on 05/03/2017 with coug h and shortness of breath. A viral PCR was done which was positive for rhinovirus/enterovirus. She was started on prednisone and azithromycin. A CT of the chest done on initial presentation revealed a left lower lobe lung mass that measured 3.9 cm which was suspicious for primary bronchogenic carcin david. Subsequently, she underwent CT-guided biopsy on 05/[address] Nova. On day of discharge, the patient continues to wheeze but says she is feeling better. She will be sen t home with supplemental oxygen to complete a 5-day course of prednisone and azithromycin. She was i nstructed to seek medical attention if her breathing worsens. She plans to follow up with Dr. Tracy gonzalez early next week to review the biopsy results. PHYSICAL EXAM: VITAL SIGNS: On day of discharge, blood pressure 146/76, pulse of 101, respiratory r ate 18, O2 saturation 91% on 3 L, temperature afebrile. GENERAL: No acute distress. HEART: S1, S2 . LUNGS: Improving wheezing. No rhonchi. No respiratory distress. PERTINENT LABS AND STUDIES: Chest CT done 05/03/2017, refer to report. CT of the abdomen done 05/04 showed no evidence of metastatic disease. PROCEDURES DONE THIS HOSPITAL STAY: Lung biopsy done 05/05/2017, refer to report. DISCHARGE MEDICATIONS: Please refer to discharge medication reconciliation in [facility] for full deta ils. Below is a preliminary list. New medications on hospital discharge: Prednisone 40 mg daily to complete 5 days. Azithromycin 250 mg p.o. daily to complete 5 days. Tessalon Perles 200 mg p.o. t.i.d. p.r.n. cough. DISCHARGE INSTRUCTIONS: The patient will be discharged from the hospital with home oxygen. Once aga in, she should follow up with Dr. Julian as scheduled to review her pathology results. She was als o encouraged to establish care with a primary care provider. /[id number]/MODL
[2017-05-06 10:58] VITALS: BP 178/83; PULSE 85; RESP 20; TEMP 98.1; O2SAT 91
--- NOTE | 2017-05-06 12:48 | ASMTCMCOM ---
CM Note CM Note Notes: Spoke w/pt, discharging with homecare ([facility]) and out pt palliative with [facility]. Final orders faxed, [facility] RN notifiied and [facility] notified. Pt aware that home health RN won't start until Monday. Family to take pt home, RN to call report. Date Signed: 05/06/2017 12:47 PM Electronically Signed By:Kendra Edwards RN
--- NOTE | 2017-05-06 17:17 | ASDISCHSUM ---
Discharge Information Plan Status:Home with Home Health Medically Cleared to Leave: Discharge Date:05/06/2017 12:53 PM D/C Disposition:Home Health Service ADT D/C Disposition:Home, Routine, Self-Care Projected Discharge Date:05/06/2017 04:00 PM Transportation at D/C:Family Discharge Delay Reason: Follow-Up Date:05/06/2017 04:00 PM Discharge Slot: Final Diagnosis: Placement Information Referral Type:Palliative Care Referral ID:[id number] Provider Name:[facility] Address 1:[address] Phone Number: Address 2: Fax Number: [facility]:[place] Selection Factors: State:[place] Referral Type:*Home Health Care Services Referral ID:[id number] Provider Name:[facility] Address 1:[address] [place] [address] Address 2: [facility]:[place] Selection Factors: State:[place] Patient Contact Information Contact Name:PINKY Relationship:Daughter Address: Work Phone: City: [facility] Phone: [facility] Code: Email: Financial Information Financial Class: Primary Plan Desc:MEDICARE INPATIENT Primary Plan Number:[id number] Secondary Plan Desc: OUT OF STATE [facility] Secondary Plan Number:[id number] Assessment Information LACE LACE Length of stay for Answers: 3 days current admission Acuity / Level of Care Answers: Was the patient admitted to hospital via the emergency department? Yes: Comorbidities - select Answers: Chronic pulmonary disease all that apply Any tumor (including lymphoma or leukemia) Emergency dept visits in Answers: 0 last 6 months Score: 10 Date Signed: 05/04/2017 05:59 PM Electronically Signed By:Ilene Deshpande LCSW [facility] CM Progress Note CM Note CM Note Notes: Pt. is a 77-year-old woman admitted with shortness of breath and a cough. Experiencing a COPD exascerbation. Hx. renal cell cancer, breast cancer, back surgeries, PNA, anxiety, depression, hyperlipidemia. Pt. is a 1/2 pack a day smoker. Pt. to have a lung biopsy tomorrow to determine if cancer has spread to lung. At request of hospitalist today, Mayur met w/ Pt. and family in room to assess for resources. Simone is very organized and pleasant. Daughter Laura present and also very engaged. Pt. and moved to [place] recently from [place] to be closer to family. Pt. and are pleased to have moved and it was not a decision where they felt they had to move. Pt. was getting her care at [facility]. Pt. interested in and provided the following resources today: 1) List of [facility] primary care providers, 2) List of psychiatrists (Pt. has paid out of pocket in past for psychiatry), 3) List of psychotherapists, 4) Information on [facility], and information about [facility]. At Pt's request, referral sent to [facility] via [employer]. Pt. and family grateful for resources. Current plan: D/c home w/ outpatient Palliative Care through [facility]. Date Signed: 05/04/2017 06:10 PM Electronically Signed By:Ilene Deshpande LCSW [facility] CM Progress Note CM Note CM Note Notes: Today Bryannar met w/ family in the room - Pt., Simone, and daughter Laura. Family had more questions. Discussed choices about care and various resources. Family grateful for the time. Likely d/c tomorrow. Current plan: [facility] RN, PT, OT. Also, outpatient Palliative Care with [facility] . Please notify [facility] when Pt. discharges and ask for visit sooner than later. Date Signed: 05/05/2017 06:03 PM Electronically Signed By:Ilene Deshpande LCSW [facility] CM Progress Note CM Note CM Note Notes: Spoke w/pt, discharging with homecare ([facility]) and out pt palliative with [facility]. Final orders faxed, [facility] RN notifiied and [facility] notified. Pt aware that home health RN won't start until Monday. Family to take pt home, RN to call report. Date Signed: 05/06/2017 12:47 PM Electronically Signed By:Kendra Edwards RN Intervention Information Intervention Type:*Incorrect Registration Date of Service:05/04/2017 12:27 PM Patient Type:Inpatient Staff Member:IZA Mccrary, Sabrina Hours: Discipline: Severity: Comment:
== END 2017-05-06 12:53 | disposition home health service (06) | DRG 190 ==
LOC: OBSVTOIN 18:00 → F3E 18:33
PROVIDERS: ADMIT Internal Medicine; ATTEND Family Medicine
PROC: 0BBJ3ZX Excision of Left Lower Lung Lobe, Percutaneous Approach, Diagnostic (ICD-10-PCS; principal; 2017-05-05)
DX: J44.1 Chronic obstructive pulmonary disease with (acute) exacerbation (principal); J44.0 Chronic obstructive pulmonary disease with (acute) lower respiratory infection; J20.6 Acute bronchitis due to rhinovirus; J20.8 Acute bronchitis due to other specified organisms; J96.01 Acute respiratory failure with hypoxia; C34.32 Malignant neoplasm of lower lobe, left bronchus or lung; N28.1 Cyst of kidney, acquired; I10 Essential (primary) hypertension; F41.9 Anxiety disorder, unspecified; F32.9 Major depressive disorder, single episode, unspecified; E78.5 Hyperlipidemia, unspecified; F17.210 Nicotine dependence, cigarettes, uncomplicated; Z85.3 Personal history of malignant neoplasm of breast
CPT/HCPCS: J1650; J2250; J2310; J3010; Q9967

== ENCOUNTER → 2017-05-24 | Outpatient (CLI) | payer OTHER, BC | LOC: BHFA 10:30 | PROVIDERS: ATTEND Internal Medicine Cardiovascular Disease | DX: Z01.811 Encounter for preprocedural respiratory examination (principal); J44.9 Chronic obstructive pulmonary disease, unspecified ==

== ENCOUNTER 2017-07-25 07:41 | Day surgery (SDC) | payer OTHER, BC ==
[2017-07-25] MEDS ORDERED: LIDOCAINE 1% 2 ML INJ ID PRN (07:54)
[2017-07-25] MEDS ORDERED: ceFAZolin 2 GM/SWFI 2 GM/20 ML SYR IVP ONE (07:54)
[2017-07-25] MEDS ORDERED: LR 1,000 ML IV ONE (07:54)
[2017-07-25] MEDS ORDERED: BUPIVACAINE 0.5% 30 ML SDV ONE (07:55)
[2017-07-25 08:26] VITALS: PULSE 91
--- NOTE | 2017-07-25 08:51 | PDHPUP ---
History & Physical Update H&P update statement: This history and physical update is based on an assessment of the patient which was completed after admission or registration (within 24 hours), but prior to the surgery/procedure. H&P update: H&P reviewed & patient examined, no change in patient's condition since H&P completed
--- NOTE | 2017-07-25 09:09 | PDANEPAE ---
ANE History of Present Illness 77 year old female for vascular access / power port placement. ANE Past Medical History - Cardiovascular History Hx Hypertension: Yes Hx Arrhythmias: No Hx Chest Pain: No Hx Coronary Artery / Peripheral Vascular Disease: No Hx CHF / Valvular Disease: No Hx Palpitations: No - Pulmonary History Hx COPD: Yes Hx Recent Upper Respiratory Infection: Yes Hx Oxygen in Use at Home: Yes O2 in Use at Home (L/minute): 2L at night Hx Sleep Apnea: No Sleep Apnea Screening Result - Last Documented: Negative - Neurologic History Hx Cerebrovascular Accident: No Hx Seizures: No Hx Dementia: No - Endocrine History Hx Diabetes: No Hypothyroid: No Hyperthyroid: No - Renal History Hx Renal Disorders: No - Liver History Hx Hepatic Disorders: No - Neurological & Psychiatric Hx Hx Neurological and Psychiatric Disorders: Yes Neurological / Psychiatric History Comment: sciatica,right - Cancer History Hx Cancer: Yes Cancer History Comment: breast cancer 2001 radiation. 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 - GI History Hx Gastrointestinal Disorders: No - Other Health History Other Health History: lower and upper missing teeth - Chronic Pain History Chronic Pain: Yes (lower back right buttock right leg) - Surgical History Prior Surgeries: femur fx, hardware broke, partial hip replacement ANE Review of Systems Review of systems is: negative Review of Systems: - Exercise capacity Exercise capacity: <4 METS METS (RN): 3 METS ANE Patient History - Allergies Allergies/Adverse Reactions: bupropion Allergy (Intermediate, Verified 07/25/17 08:11) Hives Sulfa (Sulfonamide Antibiotics) Allergy (Intermediate, Verified 07/24/17 17:42) Hives - Home Medications Home medications: home medication list seen and reviewed Home Medications: RX: Albuterol [Ventolin Hfa Inhaler] 05/03/17 [Last Taken 05/03/17 09:00] RX: Gabapentin [Neurontin 300 MG (*)] 05/03/17 [Last Taken 07/24/17] RX: HYDROcodone/APAP 10/325 [[place] 10/325 (*)] 05/03/17 [Last Taken 07/23/17] RX: LORazepam [Ativan (*)] 05/03/17 [Last Taken 07/24/17] RX: Lisinopril [Zestril 40 mg (*)] 05/03/17 [Last Taken 07/25/17 06:15] RX: Pravastatin Sodium [Pravachol] 05/03/17 [Last Taken 07/23/17] RX: amLODIPine BESYLATE [Norvasc 5 mg (*)] 05/03/17 [Last Taken 07/25/17 06:15] Effexor 07/24/17 [Last Taken 07/25/17 06:15] Anoro Ellipta 62.5-25 Mcg INH 07/25/17 [Last Taken 07/24/17] - NPO status NPO Since - Liquids (Date): 07/24/17 NPO Since - Liquids (Time): 20:00 NPO Since - Solids (Date): 07/24/17 NPO Since - Solids (Time): 20:00 - Anes Hx Anes Hx: no prior problems - Smoking Hx Smoking Status: Light smoker Marijuana use: No - Family Anes Hx Family Hx Anesthesia Complications: none ANE Labs/Vital Signs - Vital Signs Vital Signs: reviewed preoperatively; see RN documention for details Blood Pressure: 124/87 Heart Rate: 91 Respiratory Rate: 14 O2 Sat (%): 92 Height: 154.94 cm Weight: 65.771 kg ANE Physical Exam - Airway Mallampati Score: Class 4 Mouth exam: small mouth opening Mouth image: 1 - Missing teeth - Pulmonary Pulmonary: no respiratory distress - Cardiovascular Cardiovascular: regular rate and rhythym ANE Anesthesia Plan Anesthesia Plan: GA w LMA Total IV Anesthesia: Yes
[2017-07-25] MEDS ORDERED: fentaNYL 100 MCG/2 ML INJ ONE (09:16)
[2017-07-25] MEDS ORDERED: PROPOFOL/EMULSION 500 MG/50 ML BOTTLE IV ONE (09:16)
[2017-07-25] MEDS ORDERED: PHENYLEPHRINE HCL 100 MCG/ML SYR IVP PRN (09:41)
[2017-07-25] MEDS ORDERED: LR 500 ML IV PRN (09:41)
[2017-07-25] MEDS ORDERED: fentaNYL 100 MCG/2 ML INJ IVP PRN (09:41)
[2017-07-25] MEDS ORDERED: NALOXONE HCL 0.4 MG/ML INJ IVP PRN (09:41)
[2017-07-25] MEDS ORDERED: ONDANSETRON 4 MG/2 ML VIAL ONE (09:55)
--- NOTE | 2017-07-25 09:57 | POSTOPPROG ---
Post Op Note Date of Operation: 07/25/17 Surgeon: Paris Ruiz Anesthesiologist: deyanira Anesthesia: GET(General Endotracheal) Pre-op Diagnosis: L lung cancer Post-op Diagnosis: same Indication: 77 yo with lung cancer Procedure: R US guided IJ placement Findings: Tip in SVC Inf/Abcess present in the surg proc area at time of surgery?: No Depth: Superfical (Skin SQ) Specimen(s): none
--- NOTE | 2017-07-25 10:17 | GOP ---
[f rep st] OPERATIVE REPORT DATE OF OPERATION: 07/25/2017 SURGEON: Paris Ruiz MD ANESTHESIA: General. ANESTHESIOLOGIST: Camilo Brody M.D. PREOPERATIVE DIAGNOSIS: Left lung cancer. POSTOPERATIVE DIAGNOSIS: Left lung cancer. PROCEDURE PERFORMED: Right ultrasound-guided internal jugular PowerPort placement. FINDINGS: Tip in the SVC. SPECIMENS: None. ESTIMATED BLOOD LOSS: 5 mL. INDICATIONS: The patient is a 77-year-old woman with lung cancer and subcarinal nodes. She is prese nting for a port for chemotherapy. DESCRIPTION OF PROCEDURE: Patient was brought into the operating room, placed supine on the table. General anesthesia was administered. Her bilateral neck and chest were prepped and draped in the usu al sterile fashion. I infiltrated all sites with 0.5% Marcaine prior to making the incisions. I performed an ultrasound and identified her right internal jugular vein, which was fully compressibl e. I accessed this on the first attempt with dark return of blood flow. I threaded the guidewire an d removed the needle. I created a pocket to accommodate the port in the right chest and tunneled thi s up to the insertion site. Under fluoroscopy, I confirmed that the wire was in the IVC. I also christina sured the catheter and cut it to size. Using the Seldinger technique, I placed a dilator and sheath over the wire. I removed the wire and t he dilator. I threaded the catheter through the sheath and peeled away the sheath. Placement was co nfirmed with fluoroscopy. The pocket was closed with 3-0 Vicryl followed by 4-0 Monocryl. Dermabond applied. She was awakened in the operating room, extubated, transferred to PACU in stable condition. /[id number]/MODL
[2017-07-25 11:20] VITALS: O2SAT 95
--- NOTE | 2017-07-25 13:13 | POSTANESTH ---
Post Anesthetic Evaluation Cardiovascular Status: Normal, Stable, Similar to Pre-Op Cond Respiratory Status: Normal, Stable, Similar to Pre-op Cond., Other, See Comment (Patient utilizes O2 at home when sleeping (has known COPD and lung cancer)) Level of Consciousness/Mental Status: Mildly Sleepy, Arousable (Patient mildly sleeping in PACU, but this is consistent with her level of conciousness in Pre- op. Does wake when spoken to and answers all questions appropriately.) Pain Control: Adequate, Prn Tx Ordered Nausea/Vomiting Control: Adequate, Prn Tx Ordered Complications Possibly Related to Anesthesia: None Noted
[2017-07-25 14:04] VITALS: BP 136/80
[2017-07-25 14:07] VITALS: RESP 16; TEMP 98.4
== END 2017-07-25 13:10 | disposition home or self-care (01) ==
LOC: FSGY 07:41
PROVIDERS: ATTEND Surgery
PROC: 0JH60XZ Insertion of Tunneled Vascular Access Device into Chest Subcutaneous Tissue and Fascia, Open Approach (ICD-10-PCS; principal; 2017-07-25 09:15)
PROC: 02HV33Z Insertion of Infusion Device into Superior Vena Cava, Percutaneous Approach (ICD-10-PCS; principal; 2017-07-25 09:15)
DX: C34.92 Malignant neoplasm of unspecified part of left bronchus or lung (principal); J44.9 Chronic obstructive pulmonary disease, unspecified; Z87.891 Personal history of nicotine dependence
CPT/HCPCS: C1788; J0690; J1642; J2405; J2704; J3010

== ENCOUNTER → 2017-09-08 | Outpatient (CLI) | payer OTHER, BC | LOC: FIMAGING 14:25 | PROVIDERS: ATTEND Radiology Radiation Oncology | DX: C34.32 Malignant neoplasm of lower lobe, left bronchus or lung (principal) ==

== ENCOUNTER 2017-09-29 15:59 | Inpatient (IN) | payer OTHER, BC ==
--- NOTE | 2017-09-29 16:28 | CPEKG ---
Heart Rate: 104 RR Interval: 577 P-R Interval: 108 QRSD Interval: 82 QT Interval: 360 QTC Interval: 474 P Ellsworth: 18 QRS Ellsworth: 19 T Wave Ellsworth: 45 EKG Severity - OTHERWISE NORMAL ECG - EKG Impression: SINUS TACHYCARDIA Electronically Signed By: Minerva Villatoro 29-Sep-2017 16:34:03
--- NOTE | 2017-09-29 16:29 | EDPHY ---
H & P Time Seen by Provider: 09/29/17 16:06 HPI/ROS: CHIEF COMPLAINT: Hemoptysis HISTORY OF PRESENT ILLNESS: 77-year-old female with lung cancer presents with hemoptysis. Last chemotherapy was 3 days ago, followed by 2 days of radiation. Onset of a frequent moist cough 2 weeks ago, gradually increasing since then and preventing her from sleeping well. Noticed streaks of blood in the sputum today. She also had a low-[facility]. Today she feels ill and has not had anything to eat or drink because of lack of appetite. Associated with generalized weakness. She was able to walk to the bathroom from her bedroom, but felt unsteady on her feet. She was diagnosed with the lung cancer in May [address] Julian at the Cancer Center. REVIEW OF SYSTEMS: Eyes: No visual changes ENT: No sore throat Respiratory: no shortness of breath Cardiac: No chest pain Gastrointestinal: no vomiting, no abdominal pain Genitourinary: no dysuria Musculoskeletal: No leg pain or swelling Skin: No rash Neurological: No headache Psychiatric: No depression Past Medical/Surgical History: Lung cancer, stage III Social History: Smoking Status: Former smoker Physical Exam: General Appearance: Alert, pleasant, appears fatigued Eyes: Pupils equal and round, no conjunctival pallor or injection ENT, Mouth: Mucous membranes slightly dry Neck: Normal inspection Respiratory: Decreased breath sounds at the bases Cardiovascular: Regular tachycardia Gastrointestinal: Abdomen is soft and nontender Neurological: A&O, nonfocal exam Skin: Warm and dry Extremities: Normal inspection Psychiatric: Mood and affect normal Constitutional: Initial Vital Signs Temperature (C) 36.3 C 09/29/17 15:59 Heart Rate 109 H 09/29/17 15:59 Respiratory Rate 27 H 09/29/17 15:59 Blood Pressure 181/116 H 09/29/17 15:59 O2 Sat (%) 93 09/29/17 15:59 O2 Delivery Mode Nasal Cannula O2 (L/minute) 2 Allergies/Adverse Reactions: bupropion Allergy (Intermediate, Verified 07/25/17 08:11) Hives Sulfa (Sulfonamide Antibiotics) Allergy (Intermediate, Verified 07/24/17 17:42) Hives Home Medications: Medication Instructions Recorded Gabapentin [Neurontin 300 MG (*)] 300 mg PO DAILY@09,14 05/03/17 HYDROcodone/APAP 10/325 [Bon[place]arte 1 tab PO Q6H PRN 05/03/17 10/325 (*)] LORazepam [Ativan (*)] 0.5 mg PO BID 05/03/17 Lisinopril [Zestril 40 mg (*)] 40 mg PO DAILY 05/03/17 Pravastatin Sodium [Pravachol] 80 mg PO DAILY 05/03/17 amLODIPine BESYLATE [Norvasc 5 mg 5 mg PO DAILY 05/03/17 (*)] Albuterol [Proventil Inhaler HFA 1 - 2 puffs IH HS 09/29/17 (*)] Benzonatate 100 mg PO DAILY PRN 09/29/17 Gabapentin [Neurontin 300 MG (*)] 900 mg PO DAILY@21 09/29/17 Loperamide HCl [Imodium 2 mg (*)] 2 mg PO DAILY PRN 09/29/17 Umeclidinium Brm/Vilanterol Tr 1 each IH DAILY 09/29/17 [Anoro Ellipta 62.5-25 Mcg INH] Venlafaxine HCl [Venlafaxine HCl 150 mg PO DAILY 09/29/17 ER] diphenhydrAMINE [Benadryl 25 MG 25 mg PO HS PRN 09/29/17 (*)] Medical Decision Making - Diagnostics EKG Interpretation: EKG interpreted by me reveals sinus tachycardia, rate 104, T-wave inversions in leads V1 and V2. Imaging Results: Chest x-ray independently reviewed by me reveals no acute infiltrate. ED Course/Re-evaluation: This patient presents with generalized weakness, dehydration and a frequent cough, now with mild hemoptysis. Respiratory pathogen panel sent. Chest x-ray reveals no evidence of pneumonia or worsening cancer. EKG reveals no evidence of ischemia or dysrhythmia. IV normal saline 1 L given. She feels somewhat better after IV hydration. However she remains quite weak and feels that she is too unsteady to go home. She will be admitted to the hospitalist service for rehydration and further evaluation. Differential Diagnosis: Differential diagnosis includes though is not limited to severe hemoptysis, coagulopathy, pneumonia, worsening cancer. - Data Points Laboratory Results: Laboratory Results 09/29/17 16:37 09/29/17 16:37 Microbiology Results: MICROBIOLOGY 09/29/17 16:50 Nasal, Sinus - Swab Respiratory Panel (PCR) - Final Human Rhinovirus/Enterovirus Medications Given: Amlodipine Besylate (Norvasc) 5 mg PO DAILY ASTRID Stop: 03/29/18 08:59 Last Admin: 09/30/17 08:09 Dose: 5 mg Benzonatate (Tessalon Pearles) 200 mg PO TID PRN PRN Reason: Cough, Mild Stop: 03/28/18 17:34 Last Admin: 09/30/17 05:27 Dose: 200 mg Diphenhydramine HCl (Benadryl) 25 mg PO HS PRN PRN Reason: Sleep/Insomnia Stop: 03/28/18 20:05 Last Admin: 09/30/17 20:25 Dose: 25 mg Enoxaparin Sodium (Lovenox) 40 mg SC DAILY ASTRID Stop: 03/29/18 08:59 Last Admin: 09/30/17 08:09 Dose: 40 mg Gabapentin (Neurontin) 300 mg PO DAILY@09,14 ASTRID Stop: 03/29/18 08:59 Last Admin: 09/30/17 16:17 Dose: 300 mg Gabapentin (Neurontin) 900 mg PO DAILY@21 ASTRID Stop: 03/28/18 20:59 Last Admin: 09/30/17 20:20 Dose: 900 mg Guaifenesin/Codeine Phosphate (Robitussin Ac) 10 ml PO Q6HRS PRN PRN Reason: Cough, Moderate Stop: 03/28/18 17:34 Last Admin: 09/30/17 05:27 Dose: 10 ml Sodium Chloride (Ns) 1,000 mls @ 100 mls/hr IV CONT ASTRID Stop: 03/28/18 17:44 Last Admin: 09/29/17 21:10 Dose: 1,000 mls Lisinopril (Zestril) 40 mg PO DAILY ASTRID Stop: 03/29/18 08:59 Last Admin: 09/30/17 08:09 Dose: 40 mg Lorazepam (Ativan) 0.5 mg PO BID ASTRID Stop: 03/28/18 20:59 Last Admin: 09/30/17 20:20 Dose: 0.5 mg Miscellaneous Medication (Umeclidinium Brm/Vilanterol Tr [Anoro Ellipta 62.5-25 Mcg Inh]) 1 each IH DAILY ASTRID Stop: 03/29/18 08:59 Last Admin: 09/30/17 08:03 Dose: Not Given Pravastatin Sodium (Pravachol) 80 mg PO DAILY ASTRID Stop: 03/29/18 08:59 Last Admin: 09/30/17 08:09 Dose: 80 mg Venlafaxine HCl (Effexor Xr) 150 mg PO DAILY ASTRID Stop: 03/29/18 08:59 Last Admin: 09/30/17 08:09 Dose: 150 mg Discontinued Medications Sodium Chloride (Ns) 1,000 mls @ 3,000 mls/hr IV ONCE ONE Stop: 09/29/17 17:52 Last Admin: 09/29/17 17:45 Dose: 1,000 mls Departure - Departure Disposition: [facility] Acute Clinical Impression: Generalized weakness, Dehydration, Hemoptysis Lung cancer Qualifiers: Laterality: left Lung location: lower lobe of lung Qualified Code(s): C34.32 - Malignant neoplasm of lower lobe, left bronchus or lung Condition: Fair
[2017-09-29 16:48] LABS: PLATELET COUNT 243 10^3/uL (150-400)
[2017-09-29 16:58] LABS: INR 0.97 (0.83-1.16); PROTIME(PATIENT) 13.1 SEC (12.0-15.0)
[2017-09-29] MEDS ORDERED: ACETAMINOPHEN 325 MG TAB PO PRN (17:33)
[2017-09-29] MEDS ORDERED: ONDANSETRON DISINTEGRATING 4 MG TAB PO PRN (17:33)
[2017-09-29] MEDS ORDERED: ONDANSETRON 4 MG/2 ML VIAL IVP PRN (17:33)
[2017-09-29] MEDS ORDERED: ALBUTEROL 3 ML DEYVIAL IH PRN (17:33)
[2017-09-29] MEDS ORDERED: NS 1,000 ML IV ONE (17:33)
[2017-09-29] MEDS ORDERED: NS 1,000 ML IV SCH (17:45)
[2017-09-29] MEDS ORDERED: TEMAZEPAM 15 MG CAP PO PRN (20:04)
[2017-09-29] MEDS ORDERED: HYDROCODONE/APAP 10/325 TAB PO PRN (20:06)
[2017-09-29] MEDS ORDERED: LOPERAMIDE HCL 2 MG CAP PO PRN (20:06)
[2017-09-29] MEDS ORDERED: BENZONATATE 100 MG CAP PO PRN (20:06)
[2017-09-29] MEDS ORDERED: diphenhydrAMINE 25 MG CAP PO PRN (20:06)
--- NOTE | 2017-09-29 20:34 | GHP ---
[f rep st] HISTORY AND PHYSICAL DATE OF ADMISSION: 09/29/2017 CHIEF COMPLAINT: Shortness of breath and cough. HISTORY OF PRESENT ILLNESS: A 77-year-old female with a history of lung cancer, under active treatme nt, who presents to the emergency department with complaints of acute on chronic cough that has worse rigoberto abruptly in the course of the last couple days, with some subjective fevers and chills, severe fa tigue, weakness, and a sensation of failing to thrive at home. The patient's oral intake has been qu ite poor, both to food and to liquids. She denies any abdominal pain. Denies any nausea or vomiting in the home. Continues to have hemoptysis, shelly blood, but reports that has not changed markedly i n the last several days. Does describe some mild myalgias. Denies any dysuria, hematuria, or blood in her stools. PAST MEDICAL HISTORY: 1. Lung cancer, receiving treatment through [facility]. 2. Hypertension. SOCIAL HISTORY: Negative for tobacco. She is a previous tobacco user. Negative for alcohol, illici t drugs, or marijuana. FAMILY HISTORY: Negative for lung cancer. REVIEW OF SYSTEMS: A 10-point review of systems is negative with the exception of that reported in t he HPI. ADVANCED DIRECTIVES: The patient is full cor, full tube. She wants her to be her medical de cision-maker. PHYSICAL EXAMINATION: VITAL SIGNS: Blood pressure 140/107, heart rate 109, respiratory rate 18, sat ting 96% on 3 L, 36.5. GENERAL: This is a comorbidly ill-appearing female, sitting up in bed. HEEN T: Exam is notable for dry mucous membranes. Eye exam is negative for any icterus. CARDIAC: The p atient is tachycardic, but regular. PULMONARY: She is diffusely wheezy on my examination. GASTROIN TESTINAL: Positive bowel sounds. The abdomen is soft and nontender. MUSCULOSKELETAL: Negative for any lower extremity edema. SKIN: Exam is negative for any rashes. NEUROLOGIC: She is alert and o riented x3. PSYCHIATRIC: She is pleasant and cooperative on interview and examination. DATA: White count 3.04, hematocrit 37.1, platelets 234. Sodium 139, creatinine 0.6. Chest x-ray, w [facility] I personally reviewed and interpreted, shows a left-sided lung mass with no distinct infiltrates . ASSESSMENT AND PLAN: This is a 77-year-old woman, presenting with fatigue. 1. Acute rhino/enterovirus infection. The patient presents with symptoms consistent with a viral in fection, compounded certainly by her underlying immunosuppression and lung disease. We will initiate inhaled Combivent and albuterol as needed. Continue supplemental oxygen as needed and follow the chika holcomb's clinical course. 2. Acute hypoxic respiratory failure secondary to viral upper respiratory infection. We will not in itiate any antibiotics at this time. Again, use inhaled beta agonists. We will wait overnight on st eroids until we see how she responds to supportive care alone. 3. Dehydration. Based on the patient's symptoms and her report, I do think she is a little volume d own. We will use normal saline overnight and reassess her fluid status in the morning. 4. Hypertension. We will continue her home meds without change. 5. Prophylaxis with Lovenox. 6. Diet: Regular. 7. Disposition: I expect greater than 2 midnights, as the patient presents with active immunosuppre ssion and an acute respiratory viral infection. I discussed the case with the emergency room physician. The patient will be triaged to the medical-s urgical floor for care. /[id number]/MODL
--- NOTE | 2017-09-29 20:52 | PDMN ---
Medical Necessity Medical necessity: C/M review: est. > 2 MN LOS for eval and TX of acute rhino/ enterovirus respiratory viral infection, acute hypoxic respiratory failure, dehydration requiring ongoing IV fluids, pulse oximetry, supplemental O2, acute inpt PT/OT, comorbid lung cancer under active treatment, active immunosuppression, hypertension per H/P.
[2017-09-29] MEDS: BENZONATATE 100 MG CAP PO PRN (21:08)
[2017-09-29] MEDS: guaiFENesin/CODEINE PHOS 10 ML UDCUP PO PRN (21:08)
[2017-09-29] MEDS: GABAPENTIN 300 MG CAP PO SCH (21:09)
[2017-09-29] MEDS: LORazepam 0.5 MG TAB PO SCH (21:09)
[2017-09-30] MEDS: guaiFENesin/CODEINE PHOS 10 ML UDCUP PO PRN (05:27)
[2017-09-30] MEDS: BENZONATATE 100 MG CAP PO PRN (05:27)
[2017-09-30 05:33] LABS: PLATELET COUNT 200 10^3/uL (150-400)
[2017-09-30] MEDS: Umeclidinium Brm/Vilanterol Tr [Anoro Ellipta 62.5-25 Mcg Inh] IH SCH (08:03)
[2017-09-30] MEDS: GABAPENTIN 300 MG CAP PO SCH ×3 (08:09→20:20)
[2017-09-30] MEDS: LORazepam 0.5 MG TAB PO SCH ×2 (08:09→20:20)
[2017-09-30] MEDS: ENOXAPARIN 40 MG/0.4 ML SYR SC SCH (08:09)
[2017-09-30] MEDS: VENLAFAXINE XR 150 MG CAP PO SCH (08:09)
[2017-09-30] MEDS: PRAVASTATIN SODIUM 40 MG TAB PO SCH (08:09)
[2017-09-30] MEDS: amLODIPine BESYLATE 5 MG TAB PO SCH (08:09)
[2017-09-30] MEDS: LISINOPRIL 40 MG TAB PO SCH (08:09)
--- NOTE | 2017-09-30 15:59 | HOSPPROG ---
Hospitalist Progress Note Assessment/Plan: 77-year-old woman with history of lung cancer, presenting with fatigue. # Acute rhino/enterovirus infection-patient presents with symptoms consistent with a viral infection, compounded by her underlying immunosuppression and lung disease. Responded well overnight to inhaled beta agonists IV fluid resuscitation and supportive care - WBC 3.2 - continue Combivent and albuterol as needed. - Continue supplemental oxygen as needed - continue supportive care # Acute hypoxic respiratory failure secondary to viral upper respiratory infection - cough improved overnight with inhaled beta agonists Chest x-ray (personally reviewed and interpreted) shows a left-sided lung mass with no distinct infiltrates. - continue to hold on steroids or empiric antibiotics as patient responding to supportive care # Dehydration- continue IVF until p.o. Intake adequate # Hypertension. We will continue her home meds without change. # Prophylaxis with Lovenox. # Diet: Regular. # Disposition: I expect greater than 2 midnights, as the patient presents with active immunosuppression and an acute respiratory viral infection. I discussed the case with the RN- continue current care patient continues to improve expect she could be discharged tomorrow Subjective: Cough improved Objective: Vital Signs Temp Pulse Resp BP Pulse Ox 36.8 C 100 19 125/74 H 95 09/30/17 12:14 09/30/17 12:14 09/30/17 12:14 09/30/17 12:14 09/30/17 12:14 Laboratory Results 09/30/17 05:20 09/30/17 05:20 09/29/17 09/30/17 10/01/17 05:59 05:59 05:59 Intake Total 1863 500 Balance 1863 500 PT 13.1 SEC (12.0-15.0) 09/29/17 16:37 INR 0.97 (0.83-1.16) 09/29/17 16:37 - Physical Exam Constitutional: no apparent distress Eyes: anicteric sclera Ears, Nose, Mouth, Throat: moist mucous membranes Cardiovascular: regular rate and rhythym Respiratory: no respiratory distress, expiratory wheeze Gastrointestinal: normoactive bowel sounds Genitourinary: no bladder fullness Skin: warm Musculoskeletal: No asymmetric calves Neurologic: AAOx3 Psychiatric: interacting appropriately Lymph, Heme, Immunologic: no cervical LAD ICD10 Worksheet Patient Problems: Problems Problem Status Onset Acute bronchitis Acute Bronchospasm Acute Chronic obstructive pulmonary disease with acute exacerbation Acute chronic disease mgmt/transitional care Acute
--- NOTE | 2017-09-30 16:07 | GCON ---
[f rep st] CONSULTATION HEMATOLOGY/ONCOLOGY CONSULTATION REFERRING PHYSICIAN: Jadyn Lucero MD REASON FOR CONSULTATION: Lung cancer. 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 She is being treated with chem o RT with weekly carboplatin/Taxol and radiation. She received week 6 of weekly carboplatin/Taxol . She believes she has 5 or 6 more radiation treatments left. She presented to the emergency room with worsening of her chronic cough, subjective fever and chills, and significant fatigue. No significant arthralgias or myalgias. Chest x-ray demonstrated no new c onsolidation or infiltrate. The left lower lung mass has decreased in size, compared with 09/08/2017 . A respiratory panel PCR demonstrated rhinovirus/enterovirus. Negative for influenza. She was adm itted and has been treated supportively without antibiotics. She has received nebulizer treatments, which she has found helpful. She feels better this morning. She still has a cough, but feels better overall. PAST MEDICAL HISTORY: 1. Lung cancer as above. 2. Hypertension. SOCIAL HISTORY: Prior smoker. She lives in [place]. FAMILY HISTORY: Noncontributory. OUTPATIENT MEDICATIONS: Lorazepam p.r.n., Zofran p.r.n., Compazine p.r.n., amlodipine 25 mg daily, B reo, Pravachol, gabapentin 300 mg b.i.d., lisinopril 40 mg daily. ALLERGIES: Wellbutrin and sulfa cause hives. REVIEW OF SYSTEMS: CONSTITUTIONAL: Per HPI. HEENT: No sore throat, oral ulcers. CARDIOVASCULAR: No exertional chest pain, lower extremity edema. RESPIRATORY: Per HPI. GI: No nausea or vomiting . MUSCULOSKELETAL: Per HPI. NEUROLOGIC: No new symptoms. PHYSICAL EXAM: VITAL SIGNS: Blood pressure 125/74, heart rate 100, 95% on 2 L. Afebrile. She has been afebrile throughout her hospitalization. GENERAL: Fatigued appearing woman, in no acute distre ss. NECK: Supple. LUNGS: A few bilateral wheezes. CARDIOVASCULAR: No lower extremity edema. AB DOMEN: Soft and nontender. NEUROLOGIC: Grossly nonfocal. LABORATORY DATA: WBC 3.2, ANC 2.6, hemoglobin 10.5, platelets 200,000. Potassium 3.9, creatinine 0. 5. MICROBIOLOGY: Per HPI. Blood cultures are negative to date. RADIOLOGIC DATA: Chest x-ray as above. IMPRESSION: 1. Acute viral upper respiratory infection (rhinovirus/enterovirus): She is responding with support mckinley care (nebulizers) and rest. 2. Stage IIIA non-small cell lung cancer. She will be due for chemotherapy Monday, which will be de pendent on how she is recovering from this. She will follow up in the office on Monday, presuming sh re is discharged over the weekend. /[id number]/MODL
--- NOTE | 2017-09-30 19:15 | ASMTCMCOM ---
CM Note CM Note Notes: Pt admtd for acute hypoxic resp failure secondary to viral URI and also dehydration Patient has a history of stage IIIA non-small cell lung cancer and is under active chemo RT through [facility]. Her next appointment is this Monday10/02/17. Pt is improving with supportive care and may discharge tomorrow. Pt lives w/her Simone here in [place]. Exact DC needs unknown but if pt continues to recover well, anticipate pt to DC home w/ and follow up with [facility] on Monday. CM to follow. Date Signed: 09/30/2017 07:15 PM Electronically Signed By:Ilene Zuniga RN
[2017-10-01] MEDS: guaiFENesin/CODEINE PHOS 10 ML UDCUP PO PRN ×2 (00:11→09:18)
[2017-10-01 08:54] VITALS: BP 137/86
[2017-10-01] MEDS: amLODIPine BESYLATE 5 MG TAB PO SCH (08:56)
[2017-10-01] MEDS: LISINOPRIL 40 MG TAB PO SCH (08:57)
[2017-10-01] MEDS: VENLAFAXINE XR 150 MG CAP PO SCH (08:57)
[2017-10-01] MEDS: PRAVASTATIN SODIUM 40 MG TAB PO SCH (08:57)
[2017-10-01] MEDS: LORazepam 0.5 MG TAB PO SCH (08:57)
[2017-10-01] MEDS: ENOXAPARIN 40 MG/0.4 ML SYR SC SCH (08:58)
[2017-10-01] MEDS: GABAPENTIN 300 MG CAP PO SCH (09:09)
[2017-10-01] MEDS: Umeclidinium Brm/Vilanterol Tr [Anoro Ellipta 62.5-25 Mcg Inh] IH SCH (09:11)
--- NOTE | 2017-10-01 16:01 | GDS ---
[f rep st] DISCHARGE SUMMARY DISCHARGE DIAGNOSES: 1. Acute rhino/enterovirus upper respiratory infection. 2. Acute hypoxic respiratory failure secondary to viral upper respiratory infection. 3. Dehydration. 4. Hypertension. 5. History of lung cancer, receiving active treatment. HISTORY OF PRESENT ILLNESS: A 77-year-old female, actively receiving chemotherapy for lung cancer, p resents with fatigue and cough. For details of patient's initial presentation, please see the histor y and physical, dated 09/29/2017. CONSULTATIVE SERVICES: Include Oncology. PROCEDURES: On 09/29/2017, patient had a PA and lateral chest x-ray that shows decreased left basila r mass and no infiltrates. HOSPITAL COURSE BY ISSUE: 1. Acute hypoxic respiratory failure. Patient's respiratory pathogen PCR positive for entero and rh guilherme viruses. Patient was treated with inhaled beta agonists, with good response. Morning of disposi tion her cough is markedly improved. Her oxygen saturations are also improved. The patient will be discharged home without steroids or antibiotics. 2. Lung cancer, receiving active treatment. The patient will present tomorrow to Oncology for her n ext round of chemotherapy. 3. Acute entero/rhinovirus. Patient received supportive care. MEDICATIONS AT THE TIME OF DISPOSITION: Please reference the med rec, printed on 10/01/2017. FOLLOWUP APPOINTMENTS: Include with Oncology tomorrow for her next round of chemotherapy. PENDING STUDIES: At the time of this dictation include blood cultures drawn 09/29/2017, which are pr eliminary, no growth to date. I spent greater than 30 minutes in the planning and coordination of this discharge. /[id number]/MODL
--- NOTE | 2017-10-01 16:02 | ASDISCHSUM ---
Discharge Information Plan Status:Home with No Needs Medically Cleared to Leave:10/01/2017 Discharge Date:10/01/2017 12:33 PM CM D/C Disposition:Home, Routine, Self-Care ADT D/C Disposition:Home, Routine, Self-Care Projected Discharge Date:10/01/2017 12:33 PM Transportation at D/C:Family Discharge Delay Reason: Follow-Up Date:10/01/2017 12:33 PM Discharge Slot: Final Diagnosis: Placement Information Patient Contact Information Contact Name:GABRIELA Relationship: Address:[address] Phone: City:[place] Alternate Phone: [facility]/Zip Code:[place] [address] Email: Financial Information Financial Class:Medicare Primary Plan Desc:MEDICARE INPATIENT Primary Plan Number:[id number] Secondary Plan Desc: OUT OF STATE [facility] Secondary Plan Number:[id number] Assessment Information BC CM Progress Note CM Note CM Note Notes: Pt admtd for acute hypoxic resp failure secondary to viral URI and also dehydration Patient has a history of stage IIIA non-small cell lung cancer and is under active chemo RT through [facility]. Her next appointment is this Monday10/02/17. Pt is improving with supportive care and may discharge tomorrow. Pt lives w/her Simone here in [place]. Exact DC needs unknown but if pt continues to recover well, anticipate pt to DC home w/ and follow up with [facility] on Monday. CM to follow. Date Signed: 09/30/2017 07:15 PM Electronically Signed By:Ilene Zuniga RN Case Management Discharge Plan Note Case Management Discharge Discharge Order Complete? Answers: Yes Patient to Obtain Answers: via Family Medications Transportation Arranged Answers: Family/Friends Discharge Comments Notes: Pt is discharging home today with no CM needs. Pt's transporting. Date Signed: 10/01/2017 04:01 PM Electronically Signed By:ANIYAH Mendez Intervention Information
== END 2017-10-01 12:33 | disposition home or self-care (01) | DRG 152 ==
LOC: EDUNIT# → F1N 18:28
PROVIDERS: ADMIT Hospitalist; ATTEND Hospitalist
DX: J06.9 Acute upper respiratory infection, unspecified (principal); J96.01 Acute respiratory failure with hypoxia; B97.89 Other viral agents as the cause of diseases classified elsewhere; C34.90 Malignant neoplasm of unspecified part of unspecified bronchus or lung; I10 Essential (primary) hypertension; E86.0 Dehydration; Z87.891 Personal history of nicotine dependence
CPT/HCPCS: 97116-GP; 97162-GP; 97165-GO; G8978-GP-CJ; G8979-GP-CI; G8987-GO-CJ; G8988-GO-CI; J1650; J7613

== ENCOUNTER 2017-11-01 16:38 | Observation (INO) | payer OTHER ==
[2017-11-01] MEDS ORDERED: NS 1,000 ML IV ONE ×2 (17:09→17:27)
--- NOTE | 2017-11-01 17:09 | EDPHY ---
H & P Stated Complaint: Nausea vomiting diarrhea Time Seen by Provider: 11/01/17 17:00 HPI/ROS: CHIEF COMPLAINT: Nausea, vomiting, diarrhea and increasing weakness HISTORY OF PRESENT ILLNESS: The patient presents to the ED with 2 weeks of nausea, vomiting, diarrhea and increasing weakness. The patient has a history of lung cancer. She is currently being treated with chemo and radiation. Her last chemo was approximately 1 month ago. Radiation was on October 08. The patient denies any recent oral antibiotic use. She complains of mild epigastric pain. She feels globally weak from subjective dehydration. The patient denies any fever, cough or congestion. She denies any new rash. She denies additional complaints. REVIEW OF SYSTEMS: A comprehensive 10 point review of systems is otherwise negative aside from elements mentioned in the history of present illness. Source: Patient - Personal History Tetanus Vaccine Date: < 10 years - Medical/Surgical History Hx Asthma: No Hx Chronic Respiratory Disease: Yes Hx Diabetes: No Hx Cardiac Disease: Yes Hx Renal Disease: No Hx Cirrhosis: No Hx Alcoholism: No Hx HIV/AIDS: No Hx Splenectomy or Spleen Trauma: No Other PMH: sciatica, HTN, multiple back sx, breast CA, lung cancer, current chemo and radiaiton, cristina-hip, left ankle screws, hypodactly- right hand - Social History Smoking Status: Former smoker - Physical Exam Exam: General Appearance: Elderly female, deconditioned Eyes: Pupils equal and round no pallor or injection ENT, Mouth: Dry mucous membranes Respiratory: There are no retractions, lungs are clear to auscultation Cardiovascular: Tachycardic Gastrointestinal: Abdomen is soft and nontender, no masses, bowel sounds normal Neurological: 5/5 strength all 4 extremities Skin: Warm and dry, no rashes Musculoskeletal: Neck is supple nontender Extremities: symmetrical, full range of motion Constitutional: Initial Vital Signs Temperature (C) 36.8 C 11/01/17 16:40 Heart Rate 121 H 11/01/17 16:40 Respiratory Rate 18 11/01/17 16:40 Blood Pressure 102/82 H 11/01/17 16:40 O2 Sat (%) 93 11/01/17 16:40 O2 Delivery Mode Room Air Allergies/Adverse Reactions: bupropion Allergy (Intermediate, Verified 11/01/17 16:39) Hives Sulfa (Sulfonamide Antibiotics) Allergy (Intermediate, Verified 11/01/17 16:39) Hives Home Medications: Medication Instructions Recorded Gabapentin [Neurontin 300 MG (*)] 300 mg PO DAILY@09,14 05/03/17 HYDROcodone/APAP 10325 [Nye 1 tab PO Q6H PRN 05/03/17 10/325 (*)] LORazepam [Ativan (*)] 0.5 mg PO BID 05/03/17 Lisinopril [Zestril 40 mg (*)] 40 mg PO DAILY 05/03/17 Pravastatin Sodium [Pravachol] 80 mg PO DAILY 05/03/17 amLODIPine BESYLATE [Norvasc 5 mg 5 mg PO DAILY 05/03/17 (*)] Albuterol [Proventil Inhaler HFA 1 - 2 puffs IH HS 09/29/17 (*)] Benzonatate 100 mg PO DAILY PRN 09/29/17 Gabapentin [Neurontin 300 MG (*)] 900 mg PO DAILY@21 09/29/17 Loperamide HCl [Imodium 2 mg (*)] 2 mg PO DAILY PRN 09/29/17 Umeclidinium Brm/Vilanterol Tr 1 each IH DAILY 09/29/17 [Anoro Ellipta 62.5-25 Mcg INH] Venlafaxine HCl [Venlafaxine HCl 150 mg PO DAILY 09/29/17 ER] diphenhydrAMINE [Benadryl 25 MG 25 mg PO HS PRN 09/29/17 (*)] Medical Decision Making ED Course/Re-evaluation: The patient has a history of lung cancer currently receiving radiation and chemotherapy. She presents to the ED with worsening nausea, vomiting and diarrhea. The patient clinically appears moderately to severely dehydrated. She has tachycardia as a manifestation for dehydration. Patient did receive IV fluids in the emergency department and IV Zofran. I do feel the patient would benefit from IV fluid rehydration in the hospital this evening. She has no evidence of a metabolic emergency, renal failure or significant anemia. There is no evidence of neutropenia. I find the patient's abdominal examination to be benign. Differential Diagnosis: Differential diagnosis considered includes neutropenic fever, dehydration, metabolic abnormality, gastroenteritis - Data Points Laboratory Results: Laboratory Results 11/01/17 18:10 11/01/17 18:10 11/01/17 11/01/17 18:10 18:10 WBC 5.87 10^3/uL 10^3/uL (3.80-9.50) RBC 3.86 10^6/uL L 10^6/uL (4.18-5.33) Hgb 12.3 g/dL L g/dL (12.6-16.3) Hct 37.3 % L % (38.0-47.0) MCV 96.6 fL fL (81.5-99.8) MCH 31.9 pg pg (27.9-34.1) MCHC 33.0 g/dL g/dL (32.4-36.7) RDW 20.4 % H % (11.5-15.2) Plt Count 162 10^3/uL 10^3/uL (150-400) MPV 9.2 fL fL (8.7-11.7) Neut % (Auto) 75.4 % H % (39.3-74.2) Lymph % (Auto) 11.6 % L % (15.0-45.0) [place] % (Auto) 10.7 % % (4.5-13.0) Eos % (Auto) 1.7 % % (0.6-7.6) Baso % (Auto) 0.3 % % (0.3-1.7) Nucleat RBC Rel Count 0.0 % % (0.0-0.2) Absolute Neuts (auto) 4.42 10^3/uL 10^3/uL (1.70-6.50) Absolute Lymphs (auto) 0.68 10^3/uL L 10^3/uL (1.00-3.00) Absolute Monos (auto) 0.63 10^3/uL 10^3/uL (0.30-0.80) Absolute Eos (auto) 0.10 10^3/uL 10^3/uL (0.03-0.40) Absolute Basos (auto) 0.02 10^3/uL 10^3/uL (0.02-0.10) Absolute Nucleated RBC 0.00 10^3/uL 10^3/uL (0-0.01) Immature Gran % 0.3 % % (0.0-1.1) Immature Gran # 0.02 10^3/uL 10^3/uL (0.00-0.10) Platelet Estimate ADEQUATE (ADEQ) Microcytic Cells 1+ H Oval Macrocytes 1+ H Sodium 142 mEq/L mEq/L (135-145) Potassium 3.7 mEq/L mEq/L (3.5-5.2) Chloride 107 mEq/L mEq/L (97-110) Carbon Dioxide 25 mEq/l mEq/l (22-31) Anion Gap 10 mEq/L mEq/L (8-16) BUN 13 mg/dL mg/dL (7-23) Creatinine 0.7 mg/dL mg/dL (0.6-1.0) Estimated GFR > 60 Glucose 87 mg/dL mg/dL (70-100) Calcium 10.0 mg/dL mg/dL (8.5-10.4) Total Bilirubin 0.5 mg/dL mg/dL (0.1-1.4) Conjugated Bilirubin 0.3 mg/dL mg/dL (0.0-0.5) Unconjugated Bilirubin 0.2 mg/dL mg/dL (0.0-1.1) AST 15 IU/L IU/L (14-46) ALT 16 IU/L IU/L (9-52) Alkaline Phosphatase 109 IU/L IU/L (38-126) Total Protein 6.5 g/dL g/dL (6.3-8.2) Albumin 3.8 g/dL g/dL (3.5-5.0) Lipase 53 IU/L IU/L (23-300) Medications Given: Discontinued Medications Sodium Chloride (Ns) 1,000 mls @ 0 mls/hr IV EDNOW ONE; Wide Open PRN Reason: Protocol Stop: 11/01/17 17:10 Last Admin: 11/01/17 18:13 Dose: 1,000 mls Sodium Chloride (Ns) 1,000 mls @ 0 mls/hr IV EDNOW ONE; Wide Open PRN Reason: Protocol Stop: 11/01/17 17:28 Last Admin: 11/01/17 18:13 Dose: 1,000 mls Ondansetron HCl (Zofran) 4 mg IVP EDNOW ONE Stop: 11/01/17 17:28 Last Admin: 11/01/17 18:13 Dose: 4 mg Departure - Departure Disposition: [facility] In[facility] Acute Clinical Impression: Dehydration, Lung cancer, Vomiting, Diarrhea Condition: Fair Referrals: Esme Fernandes MD [Primary Care Provider] - As per Instructions
[2017-11-01] MEDS ORDERED: ONDANSETRON 4 MG/2 ML VIAL IVP ONE (17:27)
[2017-11-01 18:36] LABS: PLATELET COUNT 162 10^3/uL (150-400)
[2017-11-01] MEDS ORDERED: ONDANSETRON DISINTEGRATING 4 MG TAB PO PRN (21:09)
[2017-11-01] MEDS ORDERED: PROMETHAZINE HCL 25 MG/ML INJ IVP PRN (21:09)
[2017-11-01] MEDS ORDERED: ACETAMINOPHEN 325 MG TAB PO PRN (21:09)
[2017-11-01] MEDS ORDERED: HYDROmorphone HCL/NS 0.5 MG/ML SYR IVP PRN (21:09)
[2017-11-01] MEDS ORDERED: oxyCODONE IR 5 MG TAB PO PRN (21:09)
[2017-11-01] MEDS ORDERED: LORazepam 0.5 MG TAB PO PRN ×2 (21:11→22:41)
[2017-11-01] MEDS ORDERED: ERYTHROMYCIN 0.5% 1 GM OPHT.OINT OP PRN (21:11)
[2017-11-01] MEDS ORDERED: BENZONATATE 100 MG CAP PO PRN (21:11)
[2017-11-01] MEDS ORDERED: LOPERAMIDE HCL 2 MG CAP PO PRN (21:11)
[2017-11-01] MEDS ORDERED: diphenhydrAMINE 25 MG CAP PO PRN (21:11)
[2017-11-01] MEDS: ONDANSETRON 4 MG/2 ML VIAL IVP PRN (21:26)
[2017-11-01] MEDS ORDERED: LIDOCAINE 4%/MENTHOL 1% PATCH TD PRN (21:30)
[2017-11-01] MEDS: HYDROCODONE/APAP 10/325 TAB PO PRN (21:42)
[2017-11-01] MEDS: NS 1,000 ML IV SCH (21:42)
--- NOTE | 2017-11-01 22:35 | PDGENHP ---
History and Physical - Chief Complaint n/v/diarrhea - History of Present Illness 77 yo F with PMH of stage 3 non small cell lung cancer, recently completed chemo /xrt, admitted with 2 days of n/v/diarrhea. She notes that at approximately the same time, she ran out of her pain meds which she has been on chronically for sciatica. The pain has been increased and she also began to have nausea and vomiting as well as frequent loose stools and increased anxiety. The nausea was so severe that for the past day she has had only saltines and gingerale. She has not had fever or chills, she has not had other associated sxs. She also notes that she has been very depressed, states that this has been the case for years. She is not suicidal. History Information - Allergies/Home Medication List Allergies/Adverse Reactions: bupropion Allergy (Intermediate, Verified 11/01/17 16:39) Hives Sulfa (Sulfonamide Antibiotics) Allergy (Intermediate, Verified 11/01/17 16:39) Hives Home Medications: Gabapentin [Neurontin 300 MG (*)] 300 mg PO DAILY@05/03/17 [Last Taken 03/13 09:00] HYDROcodone/APAP 10/325 [[place] 10/325 (*)] 1 tab PO Q6H PRN 05/03/17 [Last Taken 10/31/17] LORazepam [Ativan (*)] 0.5 mg PO DAILY PRN 05/03/17 [Last Taken 11/01/17] Lisinopril [Zestril 40 mg (*)] 40 mg PO DAILY 05/03/17 [Last Taken 11/01/17] Pravastatin Sodium [Pravachol] 80 mg PO DAILY 05/03/17 [Last Taken 11/01/17] amLODIPine BESYLATE [Norvasc 5 mg (*)] 5 mg PO DAILY 05/03/17 [Last Taken ] Benzonatate 100 mg PO DAILY PRN 09/29/17 [Last Taken 3 Days Ago ~10/29/17] Gabapentin [Neurontin 300 MG (*)] 900 mg PO DAILY@21 09/29/17 [Last Taken ] Loperamide HCl [Imodium 2 mg (*)] 2 mg PO PRN PRN 09/29/17 [Last Taken 11/01/17] Umeclidinium Brm/Vilanterol Tr [Anoro Ellipta 62.5-25 Mcg INH] 1 each IH DAILY 09/29/17 [Last Taken 11/01/17] Venlafaxine HCl [Venlafaxine HCl ER] 150 mg PO DAILY 09/29/17 [Last Taken ] diphenhydrAMINE [Benadryl 25 MG (*)] 25 mg PO DAILY PRN 09/29/17 [Last Taken 03/13] Aspirin EC [Aspirin EC 81 mg (*)] 81 mg PO DAILY 11/01/17 [Last Taken 11/01/17] Erythromycin Base [Erythromycin] 1 belia OP QID PRN 11/01/17 [Last Taken 11/01/17] Lidocaine 5% Patch 1 ea TP DAILY PRN 11/01/17 [Last Taken 10/30/17] I have personally reviewed and updated: family history, medical history, social history, surgical history - Past Medical History cancer, hypertension (stage 3 scc lung) - Surgical History Reports: no pertinent surgical hx - Family History Positive for: non-pertinent - Social History Smoking Status: Former smoker Alcohol Use: Rarely Drug Use: None Additional social history: Review of Systems Review of Systems: ROS: 10pt was reviewed & negative except for what was stated in HPI & below Physical Exam Physical Exam: Temp Pulse Resp BP Pulse Ox 36.8 C 94 16 108/67 96 11/01/17 22:05 11/01/17 22:05 11/01/17 20:30 11/01/17 22:05 11/01/17 22:05 O2 (L/minute) 2 Constitutional: appears nourished, uncomfortable Eyes: PERRL, anicteric sclera Ears, Nose, Mouth, Throat: moist mucous membranes, hearing normal, ears appear normal Cardiovascular: regular rate and rhythym, systolic murmur, No edema Respiratory: no respiratory distress, no rales or rhonchi, clear to auscultation Gastrointestinal: normoactive bowel sounds, soft, non-tender abdomen Genitourinary: no bladder tenderness Skin: warm, normal color Musculoskeletal: no muscle tenderness Neurologic: AAOx3 Psychiatric: interacting appropriately, not anxious, not encephalopathic Lab Data & Imaging Review 11/01/17 18:10 11/01/17 18:10 WBC 5.87 10^3/uL (3.80-9.50) 11/01/17 18:10 RBC 3.86 10^6/uL (4.18-5.33) L 11/01/17 18:10 Hgb 12.3 g/dL (12.6-16.3) L 11/01/17 18:10 Hct 37.3 % (38.0-47.0) L 11/01/17 18:10 MCV 96.6 fL (81.5-99.8) 11/01/17 18:10 MCH 31.9 pg (27.9-34.1) 11/01/17 18:10 MCHC 33.0 g/dL (32.4-36.7) 11/01/17 18:10 RDW 20.4 % (11.5-15.2) H 11/01/17 18:10 Plt Count 162 10^3/uL (150-400) 11/01/17 18:10 MPV 9.2 fL (8.7-11.7) 11/01/17 18:10 Neut % (Auto) 75.4 % (39.3-74.2) H 11/01/17 18:10 Lymph % (Auto) 11.6 % (15.0-45.0) L 11/01/17 18:10 [place] % (Auto) 10.7 % (4.5-13.0) 11/01/17 18:10 Eos % (Auto) 1.7 % (0.6-7.6) 11/01/17 18:10 Baso % (Auto) 0.3 % (0.3-1.7) 11/01/17 18:10 Nucleat RBC Rel Count 0.0 % (0.0-0.2) 11/01/17 18:10 Absolute Neuts (auto) 4.42 10^3/uL (1.70-6.50) 11/01/17 18:10 Absolute Lymphs (auto) 0.68 10^3/uL (1.00-3.00) L 11/01/17 18:10 Absolute Monos (auto) 0.63 10^3/uL (0.30-0.80) 11/01/17 18:10 Absolute Eos (auto) 0.10 10^3/uL (0.03-0.40) 11/01/17 18:10 Absolute Basos (auto) 0.02 10^3/uL (0.02-0.10) 11/01/17 18:10 Absolute Nucleated RBC 0.00 10^3/uL (0-0.01) 11/01/17 18:10 Immature Gran % 0.3 % (0.0-1.1) 11/01/17 18:10 Immature Gran # 0.02 10^3/uL (0.00-0.10) 11/01/17 18:10 Platelet Estimate ADEQUATE (ADEQ) 11/01/17 18:10 Microcytic Cells 1+ H 11/01/17 18:10 Oval Macrocytes 1+ H 11/01/17 18:10 Sodium 142 mEq/L (135-145) 11/01/17 18:10 Potassium 3.7 mEq/L (3.5-5.2) 11/01/17 18:10 Chloride 107 mEq/L (97-110) 11/01/17 18:10 Carbon Dioxide 25 mEq/l (22-31) 11/01/17 18:10 Anion Gap 10 mEq/L (8-16) 11/01/17 18:10 BUN 13 mg/dL (7-23) 11/01/17 18:10 Creatinine 0.7 mg/dL (0.6-1.0) 11/01/17 18:10 Estimated GFR > 60 11/01/17 18:10 Glucose 87 mg/dL (70-100) 11/01/17 18:10 Calcium 10.0 mg/dL (8.5-10.4) 11/01/17 18:10 Total Bilirubin 0.5 mg/dL (0.1-1.4) 11/01/17 18:10 Conjugated Bilirubin 0.3 mg/dL (0.0-0.5) 11/01/17 18:10 Unconjugated Bilirubin 0.2 mg/dL (0.0-1.1) 11/01/17 18:10 AST 15 IU/L (14-46) 11/01/17 18:10 ALT 16 IU/L (9-52) 11/01/17 18:10 Alkaline Phosphatase 109 IU/L (38-126) 11/01/17 18:10 Total Protein 6.5 g/dL (6.3-8.2) 11/01/17 18:10 Albumin 3.8 g/dL (3.5-5.0) 11/01/17 18:10 Lipase 53 IU/L (23-300) 11/01/17 18:10 Assessment & Plan Assessment: 77 yo F with PMH of lung cancer admitted with n/v/diarrhea # n/v/diarrhea: admitted for IVF and symptomatic management, sxs improved with zofran. Given that this occurred in the setting of being out of pain meds, query if possibly related to opiate w/d. Will resume pain medication, continue IVF, IV antiemetics and monitor overnight. Will send GI pathogen panel if diarrhea recurs and hold immodium until c diff ruled out. # lung cancer: patient recently completed cycle of chemotherapy with carboplatin /taxol last month as well as XRT, had been doing well for several weeks until above occurred # sciatic pain: will resume her home medications as above, patient has had epidural injections in the past that have helped, pt/ot to evaluate # observation status Patient new to my care. Old records reviewed and summarized as above. Care plan reviewed with ER doctor. Further hx obtained from patients present at bedside.
[2017-11-02] MEDS: NS 1,000 ML IV SCH ×2 (05:06→12:32)
[2017-11-02 05:15] LABS: PLATELET COUNT 130 10^3/uL (150-400)
[2017-11-02] MEDS: ONDANSETRON 4 MG/2 ML VIAL IVP PRN (08:37)
[2017-11-02] MEDS ORDERED: Umeclidinium Brm/Vilanterol Tr [Anoro Ellipta 62.5-25 Mcg Inh] IH SCH (09:00)
[2017-11-02] MEDS ORDERED: ASPIRIN EC 81 MG TAB PO SCH (09:00)
[2017-11-02] MEDS ORDERED: ENOXAPARIN 40 MG/0.4 ML SYR SC SCH (09:00)
[2017-11-02] MEDS ORDERED: VENLAFAXINE XR 150 MG CAP PO SCH (09:00)
[2017-11-02] MEDS ORDERED: PRAVASTATIN SODIUM 40 MG TAB PO SCH (09:00)
[2017-11-02] MEDS: HYDROCODONE/APAP 10/325 TAB PO PRN (09:23)
[2017-11-02] MEDS: GABAPENTIN 300 MG CAP PO SCH ×2 (09:24→14:31)
[2017-11-02 16:11] VITALS: BP 130/81
--- NOTE | 2017-11-02 16:48 | PDDCSUM ---
Discharge Summary Discharge Summary: The patient is a pleasant 77 y female who was admitted for n/v/d and dehydration. She was admitted and provided IVF and antiemetics. She was kept overnight and now feels back to baseline. -There has been no emesis or diarrhea since arrival. She has been tolerating a diet including fluids. We discussed the option of staying overnight and taking her off the IVF but as she feels better and has been tolerating PO well, she and her want discharge and I will provide this. I will give her a prescription of Zofran. No other new medications were provided. DDX: -Nausea and vomiting -Dehydration -Diarrhea Exam: NAD MM MOIST AAOx3 RRR CTA B s/nt/nd NO LE EDEMA MEDS: SEE MED REC F/U: WITH PCP IN ONE WEEK TOTAL TIME SPENT ON D/C IS 35 MINS
[2017-11-02] MEDS ORDERED: FLUTICASONE IN SCH (21:00)
[2017-11-02] MEDS ORDERED: GABAPENTIN 300 MG CAP PO SCH (21:00)
[2017-11-02] MEDS ORDERED: PATCH REMOVAL 1 EA PATCH TD SCH (21:00)
[2017-11-02] MEDS ORDERED: VILANTEROL IN SCH (21:00)
[2017-11-03] MEDS ORDERED: Umeclidinium Brm/Vilanterol Tr [Anoro Ellipta 62.5-25 Mcg Inh] IH SCH (09:00)
== END 2017-11-02 18:40 | disposition home or self-care (01) ==
LOC: F1N 20:42
PROVIDERS: ADMIT Internal Medicine; ATTEND Family Medicine
DX: E86.0 Dehydration (principal); R11.2 Nausea with vomiting, unspecified; R19.7 Diarrhea, unspecified; I10 Essential (primary) hypertension; M54.30 Sciatica, unspecified side; C34.90 Malignant neoplasm of unspecified part of unspecified bronchus or lung; Z87.891 Personal history of nicotine dependence; Z85.3 Personal history of malignant neoplasm of breast
CPT/HCPCS: 97161; G0378; G8978; G8979; J1650; J2405; J2550; 96374

== ENCOUNTER → 2017-12-13 | Outpatient (CLI) | payer OTHER, BC ==
[~2017-12-13] MED LIST: IOPAMIDOL (ISOVUE 370) 100 ML BTL IV ONE
== END ==
LOC: FIMAGING 12:17
PROVIDERS: ATTEND Internal Medicine Hematology & Oncology
DX: R91.1 Solitary pulmonary nodule (principal); M84.48XA Pathological fracture, other site, initial encounter for fracture; C34.92 Malignant neoplasm of unspecified part of left bronchus or lung
CPT/HCPCS: 71275; Q9967

== ENCOUNTER → 2017-12-29 | Outpatient (CLI) | payer OTHER, BC | LOC: BMCIMAGING 09:52 | PROVIDERS: ATTEND Internal Medicine Hematology & Oncology | DX: Z13.820 Encounter for screening for osteoporosis (principal); M85.89 Other specified disorders of bone density and structure, multiple sites; Z98.1 Arthrodesis status; Z96.641 Presence of right artificial hip joint ==

== ENCOUNTER 2018-06-07 09:42 | Inpatient (IN) | payer OTHER, BC ==
[2018-06-07] MEDS ORDERED: NS 1,600 ML IV ONE (10:26)
[2018-06-07] MEDS ORDERED: LET GEL TOPICAL 1 EA SYR TP ONE (11:03)
[2018-06-07 11:48] LABS: PLATELET COUNT 299 10^3/uL (150-400)
[2018-06-07 11:58] LABS: INR 1.06 (0.83-1.16)
--- NOTE | 2018-06-07 12:02 | EDPHY ---
HPI/HX/ROS/PE/MDM Narrative: CLINICAL IMPRESSION: Urinary tract infection, lethargy, weakness ASSESSMENT/PLAN: This is a 78-year-old female with a past medical history significant for stage III non-small cell lung cancer, followed by Dr. Julian, who was brought to the emergency department today by her who is a retired dentist for concerns of 2 days of extreme lethargy, inability to get out of bed, weakness. He is concerned the patient may be slipping into depression as she has had prior episodes of severe depression requiring inpatient psych admission 9 years ago. She is not currently on medical therapy for depression. Patient was tachycardic on arrival and appeared very dehydrated, unable to provide any history, but denying pain. She has no leukocytosis, renal insufficiency, transaminitis, electrolyte imbalance, hypoglycemia, or evidence of sepsis. She has a normal lactic acid. Urine does appear significantly infected, antibiotics were ordered in the ED and a culture was also ordered. Patient was able to sit up and was tolerating water. I feel she would benefit from inpatient admission for fluid resuscitation and treatment of urinary tract infection before an accurate mental health evaluation can be performed. I discussed with hospitalist who accepts admission and patient's is comfortable with this plan. DIFFERENTIAL DX: Weakness including but not limited to electrolyte abnormality, depression, anxiety, CVA, spinal cord abnormality, and infectious causes. ED PROCEDURES: See lab and imaging results below ED COURSE: Lab and imaging results discussed with patient's . He reports that she has been sleeping during her entire visit although awakens only briefly. Vitals have remained stable. Tachycardia improved. I discussed recommendation for admission and patient's is in agreement with this plan. Discussed with hospitalist who accepts admission to Oncology floor. CHIEF COMPLAINT: Weakness, lethargy, possible depression HPI: This is a 78-year-old female with past medical history significant for COPD and lung cancer who is followed by Dr. Julian and was brought to the emergency department today by her , a retired dentist, for concerns of weakness, lethargy, and possible depression. Patient's is the primary historian. He reports the patient was admitted for depression 9 years ago but has been off all antidepressant medications since that time. For the last 2 days she has not gotten out of bed, has had very little p.o. Intake, has seemed increasingly lethargic, and he is concerned that she is depressed again. She finished chemotherapy and radiation treatment for lung cancer earlier this year and has been getting infusions recently and was supposed to get an infusion today. No history of chronic UTIs. No documented fever, chills, URI symptoms, abdominal pain vomiting or diarrhea. Her reports she has not had anything to eat in the last 2 days. She was admitted for depression 9 years ago but did not present in a comatose state. She has not been on any new medications or change in medication plan and was never told that she had metastatic disease to the brain. She has been admitted to the hospital before for similar symptoms PMH: Stage III non-small cell lung cancer, hypertension, chronic sciatica, hypodactyly right hand Pertinent Past Surgical History: Multiple prior orthopedic surgeries Family History: No reported family history of depression or mental health illness Social History: Ex-smoker although has been reports he found half pack of cigarettes in her clothing today REVIEW OF SYSTEMS: Obtained from patient's All other systems negative Constitutional: No fever, no chills, positive for appetite change. Eyes: No discharge, vision change ENT: No sore throat, congestion, ear pain. Cardiovascular: No chest pain, no palpitations. Respiratory: No cough, no shortness of breath. Gastrointestinal: No abdominal pain, no vomiting, diarrhea. Genitourinary: No hematuria, dysuria, flank pain, pelvic pain Musculoskeletal: No back pain, joint swelling, joint pain, myalgias. Skin: No rashes, color change. Neurological: No headache, dizziness, positive for weakness. PHYSICAL EXAM: General Appearance: Alert to verbal command, refusing to answer questions, tachycardic, normally wears 3 1/2 L of oxygen 24/7 at home and is hypoxic at 90 % on arrival. Chronically ill-appearing HEENT: TMs are clear bilaterally no perforation or FB, no injection, no evidence of serous or mucopurulent otitis. Oropharynx clear , very dry mucous membranes, upper dentures removed with no evidence of intraoral lesion or gingival inflammation Eyes: PERRLA, no acute vision change, nystagmus, swelling, discharge, pain or photosensitivity. Conjunctiva pink, no pallor or injection Neck: Supple, nontender, no lymphadenopathy, no midline pain, FROM, no meningismus. Respiratory: There are no retractions, lungs are clear to auscultation. Cardiac: Tachycardic, normal rhythm, no murmurs or gallops. Gastrointestinal: Abdomen is soft, nontender, bowel sounds normal, no masses/ hernia, no rigidity, guarding or focal peritoneal findings. Neurological: Alert and oriented x 3, CN 2-12 grossly intact, normal gait no ataxia, DTR's intact, normal sensation and strength Skin: Warm, dry, no rashes, no nodules on palpation. Musculoskeletal: Extremities are symmetrical, full range of motion, no tenderness, deformity, swelling, or erythema. Psychiatric: Past history of depression, will not answer my questions about depression, MEDICAL DECISION MAKING: Patient was seen independently. Secondary supervising physician at time of evaluation was Dr. Sauceda . Diagnosis: Urinary tract infection, weakness, lethargy. New, requires workup Summary: See Assessment and Plan for summary of ED visit Clinical lab tests: ordered / reviewed. Independent visualization of images, tracing, or specimens: Yes. Decision to obtain medical records or history from someone other than the patient: Patient's Review / Summarize previous medical records: Previous hospital admission notes reviewed Discussed patient with another provider: Hospitalist Patient Progress: Stable. (Eran Mason) MDM: I did not see this patient while she was in the emergency department. However her care was discussed with the PA while the patient was in the department. I agree with treatment plan and management (Esequiel Sauceda) - Data Points Laboratory Results: Laboratory Results 06/08/18 05:10 06/08/18 05:10 Medications Given: Discontinued Medications Acetaminophen (Tylenol) 650 mg PO Q4HRS PRN PRN Reason: Pain, Mild/Fever, Can Take PO Stop: 12/04/18 14:34 Last Admin: 06/08/18 01:29 Dose: 650 mg Hydrocodone Bitart/Acetaminophen ([place] 5/325) 2 tab PO Q6HRS PRN PRN Reason: Pain, Breakthrough Stop: 06/17/18 15:45 Last Admin: 06/08/18 04:17 Dose: 2 tab Hydrocodone Bitart/Acetaminophen ([place] 5/325) 2 tab PO Q4H PRN PRN Reason: Pain, Breakthrough Stop: 06/17/18 15:45 Last Admin: 06/09/18 05:12 Dose: 1 tab Benzonatate (Tessalon Pearles) 100 mg PO TID PRN PRN Reason: Cough, Mild Stop: 12/05/18 09:32 Last Admin: 06/08/18 21:39 Dose: 100 mg Diphenhydramine HCl (Benadryl) 25 mg PO ONCE ONE Stop: 06/07/18 19:01 Last Admin: 06/07/18 19:55 Dose: 25 mg Sodium Chloride (Ns) 1,600 mls @ 3,200 mls/hr 30 ml/kg infuse over 30 min ( 1600 ml) IV EDNOW ONE PRN Reason: Protocol Stop: 06/07/18 10:55 Last Admin: 06/07/18 11:46 Dose: 1,600 mls Ceftriaxone Sodium/Dextrose (Rocephin 1 Gm (Premix)) 50 mls @ 100 mls/hr IV EDNOW ONE PRN Reason: Protocol Stop: 06/07/18 14:37 Last Admin: 06/07/18 15:00 Dose: 50 mls Sodium Chloride (Ns) 1,000 mls @ 100 mls/hr IV CONT ASTRID Stop: 12/04/18 14:44 Last Admin: 06/08/18 12:06 Dose: 1,000 mls Ibuprofen (Motrin) 600 mg PO Q6HRS PRN PRN Reason: Pain, Mild Stop: 12/05/18 10:23 Last Admin: 06/09/18 05:12 Dose: 600 mg Influenza Virus Vaccine Quadrival (Flulaval Quad [id number] (6mo+)) 0.5 ml IM .ONCE ONE Stop: 06/08/18 09:14 Last Admin: 06/08/18 09:45 Dose: 0.5 ml Lisinopril (Zestril) 40 mg PO DAILY ASTRID Stop: 12/04/18 15:59 Last Admin: 06/09/18 09:04 Dose: 40 mg Lorazepam (Ativan) 1 mg PO HS PRN PRN Reason: Sleep/Insomnia Stop: 12/04/18 15:45 Last Admin: 06/08/18 21:39 Dose: 1 mg Lorazepam (Ativan) 1 mg PO ONCE ONE Stop: 06/08/18 14:45 Last Admin: 06/08/18 14:50 Dose: 1 mg Methylphenidate HCl (Ritalin) 5 mg PO DAILY ASTRID Stop: 12/04/18 15:59 Last Admin: 06/09/18 09:04 Dose: 5 mg Miscellaneous Information (Patch Removal) 1 ea TD DAILY21 ASTRID Stop: 12/05/18 20:59 Last Admin: 06/08/18 22:05 Dose: 1 ea Miscellaneous Medication (Desvenlafaxine Succinate [Pristiq]) 25 mg PO DAILY ASTRID Stop: 12/04/18 15:59 Last Admin: 06/08/18 08:51 Dose: 25 mg Miscellaneous Medication (Umeclidinium Corry [Incruse Ellipta]) 1 puffs IH DAILY ASTRID Stop: 12/04/18 15:59 Last Admin: 06/09/18 09:05 Dose: 1 inh Miscellaneous Medication (Icy Hot Lidocaine/Menthol 4%/1% Patch) 1 patch TD DAILY ASTRID Stop: 12/05/18 09:44 Last Admin: 06/09/18 09:05 Dose: 1 patch Miscellaneous Medication (Desvenlafaxine Succinate [Pristiq]) 50 mg PO DAILY ASTRID Stop: 12/04/18 15:59 Last Admin: 06/09/18 09:04 Dose: 50 mg Ondansetron HCl (Zofran) 4 mg IVP Q4HRS PRN PRN Reason: Nausea/Vomiting, Can't Take PO Stop: 12/04/18 14:34 Last Admin: 06/09/18 09:05 Dose: 4 mg Ondansetron HCl (Zofran Odt) 4 mg PO Q4HRS PRN PRN Reason: Nausea/Vomiting, Use 1st Stop: 12/04/18 14:34 Last Admin: 06/09/18 00:01 Dose: 4 mg Fluticasone/Salmeterol (Advair) 1 puffs IH BID ASTRID Stop: 12/04/18 20:59 Last Admin: 06/09/18 09:10 Dose: 1 puffs General Time Seen by Provider: 06/07/18 10:11 Initial Vital Signs: Initial Vital Signs Temperature (C) 36.5 C 06/07/18 09:49 Heart Rate 109 H 06/07/18 09:49 Respiratory Rate 18 06/07/18 09:49 Blood Pressure 124/76 H 06/07/18 09:49 O2 Sat (%) 90 L 06/07/18 09:49 O2 Delivery Mode Nasal Cannula O2 (L/minute) 3 Allergies/Adverse Reactions: bupropion Allergy (Unknown, Unverified 06/09/18 17:08) Sulfa (Sulfonamide Antibiotics) Allergy (Unknown, Unverified 06/09/18 17:08) Hives Home Medications: Medication Instructions Recorded Lisinopril [Zestril 40 mg (*)] 40 mg PO DAILY 05/03/17 Benzonatate 100 mg PO TID PRN 09/29/17 Loperamide HCl [Imodium 2 mg (*)] 2 mg PO PRN PRN 09/29/17 diphenhydrAMINE [Benadryl 25 MG 25 mg PO DAILY PRN 09/29/17 (*)] Hydrocodone/Acetaminophen [[place] 2 tab PO Q6HRS PRN 02/02/18 5/325 (*)] Fluticasone/Salmeter 250/50Mcg 1 puffs IH BID 06/07/18 [Advair 250/50 (*)] LORazepam [Ativan (*)] 1 mg PO HS PRN 06/07/18 Methylphenidate HCl [Ritalin 5mg 5 mg PO DAILY 06/07/18 (*)] Ondansetron Odt [Zofran Odt 4 mg 4 - 8 mg PO Q8HRS PRN 06/07/18 (*)] Umeclidinium [place] [Incruse 1 puffs IH DAILY 06/07/18 Ellipta] Desvenlafaxine Succinate [Pristiq] 50 mg PO DAILY #30 tab.er.24h 06/09/18 Departure - Departure Disposition: [facility] Acute Clinical Impression: Weakness Urinary tract infection Qualifiers: Urinary tract infection type: acute cystitis Hematuria presence: with hematuria Qualified Code(s): N30.01 - Acute cystitis with hematuria Altered mental status Qualifiers: Altered mental status type: unspecified Qualified Code(s): R41.82 - Altered mental status, unspecified Condition: Fair
[2018-06-07] MEDS ORDERED: ONDANSETRON DISINTEGRATING 4 MG TAB PO PRN (14:35)
[2018-06-07] MEDS ORDERED: ACETAMINOPHEN 325 MG TAB PO PRN (14:35)
--- NOTE | 2018-06-07 14:45 | PDGENHP ---
<Christy Bennett - Last Filed: 06/07/18 16:31> History and Physical - Chief Complaint Weakness, lethargy - History of Present Illness 78 y/o female presents with 2 days worth of weakness, lethargy, lack of appetite and depression. She has stage III lung cancer, underwent chemo and radiation treatment and is currently receiving infusions via Dr. Yazan Mack. She was scheduled to have an infusion today but instead, her brought her to the ED with concerns of her mental and physical condition. This is my first encounter with the pt. She reports being depressed because of the upcoming holidays and her cleaning and maintenance worker left her. She denies harming herself or others. She admits to wanting to stay in bed, insomnia, generalized weakness, and not having much of an appetite both with food or fluids. Denies chest pains, SOB (only if she doesn't wear her oxygen), dizziness, dysuria, nausea, vomiting, diarrhea. Endorses dark urine. CXR reveals resolution of a left pleural effusion (she experienced this January 2018) and persistent left lower lobe nodular opacity compatible with known lung cancer. She does have fractured ribs from "coughing so much" and recent fall. This was noted in January 2018. She is being admitted to observation for further diagnostic work-up and treatment of suspected UTI. Past Medical/Surgical History 1. Non-small cell lung cancer, undergoing treatment with Dr. Yazan Mack 2. COPD (on 3L [place] oxygen at home) 3. Depression 4. Hx of breast cancer 5. Hypertension 6. Hyperlipidemia Social 1. . is Simone. 2. Continues to smoke cigarettes approximately 3-4 cigarettes sporadically. Her thinks she sneaks in more since he finds packets of cigarettes in her jacket and purse. Denies illicit drug use. No alcohol use. Vital Signs 157/104 107 HR 16 Respirations 97% 3L NC 36.5c History Information - Allergies/Home Medication List Allergies/Adverse Reactions: bupropion Allergy (Intermediate, Verified 06/07/18 09:48) Hives Sulfa (Sulfonamide Antibiotics) Allergy (Intermediate, Verified 06/07/18 09:48) Hives Home Medications: Lisinopril [Zestril 40 mg (*)] 40 mg PO DAILY 05/03/17 [Last Taken 02/02/18] Benzonatate 100 mg PO TID PRN 09/29/17 [Last Taken 3 Days Ago ~10/29/17] Loperamide HCl [Imodium 2 mg (*)] 2 mg PO PRN PRN 09/29/17 [Last Taken 11/01/17] diphenhydrAMINE [Benadryl 25 MG (*)] 25 mg PO DAILY PRN 09/29/17 [Last Taken 03/13] Desvenlafaxine Succinate [Pristiq] 25 mg PO DAILY 02/02/18 [Last Taken 02/02/18] Hydrocodone/Acetaminophen [[place] 5/325 (*)] 2 tab PO Q6HRS PRN 02/02/18 [Last Taken 02/02/18 2 tabs] Fluticasone/Salmeter 250/50Mcg [Advair 250/50 (*)] 1 puffs IH BID 06/07/18 [ Last Taken Unknown] LORazepam [Ativan (*)] 1 mg PO HS PRN 06/07/18 [Last Taken Unknown] Methylphenidate HCl [Ritalin 5mg (*)] 5 mg PO DAILY 06/07/18 [Last Taken Unknown ] Ondansetron Odt [Zofran Odt 4 mg (*)] 4 - 8 mg PO Q8HRS PRN 06/07/18 [Last Taken Unknown] Umeclidinium [place] [Incruse Ellipta] 1 puffs IH DAILY 06/07/18 [Last Taken Unknown] I have personally reviewed and updated: family history, medical history, social history, surgical history Past Medical History: See HPI List - Past Medical History cancer, hypertension (stage 3 scc lung) - Surgical History Reports: no pertinent surgical hx - Family History Positive for: non-pertinent - Social History Smoking Status: Light smoker Alcohol Use: None Drug Use: None Additional social history: Review of Systems Review of Systems: ROS: 10pt was reviewed & negative except for what was stated in HPI & below Constitutional: Reports: chills, weakness EENMT: Reports: no symptoms Cardiac: Reports: no symptoms Respiratory: Reports: no symptoms Gastrointestinal: Reports: no symptoms Genitourinary: Reports: no symptoms Muscolosketal: Reports: no symptoms Skin: Reports: no symptoms Neurological: Reports: depressed, weakness Hematologic/Lymphatic: Reports: no symptoms Immunologic/Allergy: Reports: other (See allergy list) Physical Exam Physical Exam: Lab data and imaging reviewed Temp Pulse Resp BP Pulse Ox 36.5 C 107 H 16 157/104 H 97 06/07/18 09:49 06/07/18 13:17 18 13:17 06/07/18 13:17 06/07/18 13:17 Constitutional: no apparent distress, appears nourished, not in pain Eyes: PERRL, anicteric sclera, EOMI Ears, Nose, Mouth, Throat: hearing normal, ears appear normal, no oral mucosal ulcers, dry mucous membranes Cardiovascular: regular rate and rhythym, no murmur, rub, or gallop, tachycardia , No edema Peripheral Pulses: 2+: dorsalis-pedis (R) (Radial 2+), dorsalis-pedis (L) ( Radial 2+) Respiratory: reduced air movement (Throughout lung [place]) Gastrointestinal: normoactive bowel sounds, soft, non-tender abdomen, no palpable masses Genitourinary: no bladder fullness, no bladder tenderness Skin: warm, normal color, no rashes or abrasions, no fluctuance, no induration, No mottled Musculoskeletal: generalized weakness Neurologic: AAOx3, sensation intact bilaterally, weakness, CN II-XII Intact Psychiatric: not encephalopathic, thought process linear, depressed, flat affect Lymph, Heme, Immunologic: no cervical LAD, no supraclavicular LAD Lab Data & Imaging Review 06/07/18 11:30 06/07/18 11:30 WBC 5.92 10^3/uL (3.80-9.50) 06/07/18 11:30 RBC 4.30 10^6/uL (4.18-5.33) 06/07/18 11:30 Hgb 13.4 g/dL (12.6-16.3) 06/07/18 11:30 Hct 40.4 % (38.0-47.0) 06/07/18 11:30 MCV 94.0 fL (81.5-99.8) 06/07/18 11:30 MCH 31.2 pg (27.9-34.1) 06/07/18 11:30 MCHC 33.2 g/dL (32.4-36.7) 06/07/18 11:30 RDW 12.6 % (11.5-15.2) 06/07/18 11:30 Plt Count 299 10^3/uL (150-400) 06/07/18 11:30 MPV 8.6 fL (8.7-11.7) L 06/07/18 11:30 Neut % (Auto) 66.6 % (39.3-74.2) 06/07/18 11:30 Lymph % (Auto) 16.6 % (15.0-45.0) 06/07/18 11:30 [place] % (Auto) 12.3 % (4.5-13.0) 06/07/18 11:30 Eos % (Auto) 3.4 % (0.6-7.6) 06/07/18 11:30 Baso % (Auto) 0.8 % (0.3-1.7) 06/07/18 11:30 Nucleat RBC Rel Count 0.0 % (0.0-0.2) 06/07/18 11:30 Absolute Neuts (auto) 3.94 10^3/uL (1.70-6.50) 06/07/18 11:30 Absolute Lymphs (auto) 0.98 10^3/uL (1.00-3.00) L 06/07/18 11:30 Absolute Monos (auto) 0.73 10^3/uL (0.30-0.80) 06/07/18 11:30 Absolute Eos (auto) 0.20 10^3/uL (0.03-0.40) 06/07/18 11:30 Absolute Basos (auto) 0.05 10^3/uL (0.02-0.10) 06/07/18 11:30 Absolute Nucleated RBC 0.00 10^3/uL (0-0.01) 06/07/18 11:30 Immature Gran % 0.3 % (0.0-1.1) 06/07/18 11:30 Immature Gran # 0.02 10^3/uL (0.00-0.10) 06/07/18 11:30 PT 14.0 SEC (12.0-15.0) 06/07/18 11:30 INR 1.06 (0.83-1.16) 06/07/18 11:30 APTT 28.3 SEC (23.0-38.0) 06/07/18 11:30 VBG Lactic Acid 1.0 mmol/L (0.7-2.1) 06/07/18 11:30 Sodium 140 mEq/L (135-145) 06/07/18 11:30 Potassium 4.2 mEq/L (3.5-5.2) 06/07/18 11:30 Chloride 106 mEq/L (97-110) 06/07/18 11:30 Carbon Dioxide 25 mEq/l (22-31) 06/07/18 11:30 Anion Gap 9 mEq/L (6-14) 06/07/18 11:30 BUN 16 mg/dL (7-23) 06/07/18 11:30 Creatinine 0.6 mg/dL (0.6-1.0) 06/07/18 11:30 Estimated GFR > 60 06/07/18 11:30 Glucose 90 mg/dL (70-100) 06/07/18 11:30 Calcium 10.2 mg/dL (8.5-10.4) 06/07/18 11:30 Total Bilirubin 0.4 mg/dL (0.1-1.4) 06/07/18 11:30 Urine Color YELLOW 06/07/18 12:33 Urine Appearance MODERATELY TURBID 06/07/18 12:33 Urine pH 5.0 (5.0-7.5) 06/07/18 12:33 Ur Specific [place] 1.019 (1.002-1.030) 06/07/18 12:33 Urine Protein NEGATIVE (NEGATIVE) 06/07/18 12:33 Urine Ketones TRACE (NEGATIVE) H 06/07/18 12:33 Urine Blood NEGATIVE (NEGATIVE) 06/07/18 12:33 Urine Nitrate NEGATIVE (NEGATIVE) 06/07/18 12:33 Urine Bilirubin NEGATIVE (NEGATIVE) 06/07/18 12:33 Urine Urobilinogen NEGATIVE EU (0.2-1.0) 06/07/18 12:33 Ur Leukocyte Esterase 1+ (NEGATIVE) H 06/07/18 12:33 Urine RBC 3-5 /hpf (0-3) H 06/07/18 12:33 Urine WBC 5-10 /hpf (0-3) H 06/07/18 12:33 Ur Epithelial Cells 4+ /lpf (NONE-1+) H 06/07/18 12:33 Urine Bacteria 2+ /hpf (NONE SEEN) H 06/07/18 12:33 Hyaline Casts 1-5 /lpf (0-1) 06/07/18 12:33 Urine Mucus 2+ /lpf (NONE-1+) H 06/07/18 12:33 Urine Glucose NEGATIVE (NEGATIVE) 06/07/18 12:33 Assessment & Plan Plan: 1. Possible UTI -Previous UA appeared not to be clean with high count of epithelial cells. We will wait for the cultures for possible alternative treatment options. In the meantime considering her presentation of lethargy, weakness, tachycardia, poor PO intake - we will continue to treat with ceftriaxone. Repeat UA tonight for a clean catch. -IV NS -CBC/BMP tomorrow 2. Depression -Behavioral health consult -She denies wanting to harm herself or others -May continue gabapentin, pristig, and ativan 3. Hypertension -Stable at this time and may continue lisinopril 4. Generalized weakness -Multi factorial that could suggest this weakness - her mental health, lack of nutrition, lack of sleep. She will work with PT/OT. -Will check TSH and B12 levels 5. Tobacco cessation -Considering stage III lung cancer and currently receiving treatment, counseled pt to stop smoking and if she would be willing to stop. She is not willing at this point. Diet: Regular VTE ppx: SCDs Code: DNR Dispo: Admit to obs <Alejandrina Alfaro - Last Filed: 06/07/18 20:38> History and Physical - History of Present Illness Review of Systems Review of Systems: Physical Exam Physical Exam: Temp Pulse Resp BP Pulse Ox 36.9 C 105 H 18 129/73 H 97 06/07/18 20:29 06/07/18 20:29 06/07/18 20:29 06/07/18 20:29 06/07/18 20:29 O2 (L/minute) 3 Lab Data & Imaging Review 06/07/18 11:30 06/07/18 11:30 WBC 5.92 10^3/uL (3.80-9.50) 06/07/18 11:30 RBC 4.30 10^6/uL (4.18-5.33) 06/07/18 11:30 Hgb 13.4 g/dL (12.6-16.3) 06/07/18 11:30 Hct 40.4 % (38.0-47.0) 06/07/18 11:30 MCV 94.0 fL (81.5-99.8) 06/07/18 11:30 MCH 31.2 pg (27.9-34.1) 06/07/18 11:30 MCHC 33.2 g/dL (32.4-36.7) 06/07/18 11:30 RDW 12.6 % (11.5-15.2) 06/07/18 11:30 Plt Count 299 10^3/uL (150-400) 06/07/18 11:30 MPV 8.6 fL (8.7-11.7) L 06/07/18 11:30 Neut % (Auto) 66.6 % (39.3-74.2) 06/07/18 11:30 Lymph % (Auto) 16.6 % (15.0-45.0) 06/07/18 11:30 [place] % (Auto) 12.3 % (4.5-13.0) 06/07/18 11:30 Eos % (Auto) 3.4 % (0.6-7.6) 06/07/18 11:30 Baso % (Auto) 0.8 % (0.3-1.7) 06/07/18 11:30 Nucleat RBC Rel Count 0.0 % (0.0-0.2) 06/07/18 11:30 Absolute Neuts (auto) 3.94 10^3/uL (1.70-6.50) 06/07/18 11:30 Absolute Lymphs (auto) 0.98 10^3/uL (1.00-3.00) L 06/07/18 11:30 Absolute Monos (auto) 0.73 10^3/uL (0.30-0.80) 06/07/18 11:30 Absolute Eos (auto) 0.20 10^3/uL (0.03-0.40) 06/07/18 11:30 Absolute Basos (auto) 0.05 10^3/uL (0.02-0.10) 06/07/18 11:30 Absolute Nucleated RBC 0.00 10^3/uL (0-0.01) 06/07/18 11:30 Immature Gran % 0.3 % (0.0-1.1) 06/07/18 11:30 Immature Gran # 0.02 10^3/uL (0.00-0.10) 06/07/18 11:30 PT 14.0 SEC (12.0-15.0) 06/07/18 11:30 INR 1.06 (0.83-1.16) 06/07/18 11:30 APTT 28.3 SEC (23.0-38.0) 06/07/18 11:30 VBG Lactic Acid 1.0 mmol/L (0.7-2.1) 06/07/18 11:30 Sodium 140 mEq/L (135-145) 06/07/18 11:30 Potassium 4.2 mEq/L (3.5-5.2) 06/07/18 11:30 Chloride 106 mEq/L (97-110) 06/07/18 11:30 Carbon Dioxide 25 mEq/l (22-31) 06/07/18 11:30 Anion Gap 9 mEq/L (6-14) 06/07/18 11:30 BUN 16 mg/dL (7-23) 06/07/18 11:30 Creatinine 0.6 mg/dL (0.6-1.0) 06/07/18 11:30 Estimated GFR > 60 06/07/18 11:30 Glucose 90 mg/dL (70-100) 06/07/18 11:30 Calcium 10.2 mg/dL (8.5-10.4) 06/07/18 11:30 Total Bilirubin 0.4 mg/dL (0.1-1.4) 06/07/18 11:30 Vitamin B12 690 pg/mL (239-931) 06/07/18 11:30 TSH 0.432 uIU/mL (0.465-4.680) L 06/07/18 11:30 Urine Color YELLOW 06/07/18 12:33 Urine Appearance MODERATELY TURBID 06/07/18 12:33 Urine pH 5.0 (5.0-7.5) 06/07/18 12:33 Ur Specific [place] 1.019 (1.002-1.030) 06/07/18 12:33 Urine Protein NEGATIVE (NEGATIVE) 06/07/18 12:33 Urine Ketones TRACE (NEGATIVE) H 06/07/18 12:33 Urine Blood NEGATIVE (NEGATIVE) 06/07/18 12:33 Urine Nitrate NEGATIVE (NEGATIVE) 06/07/18 12:33 Urine Bilirubin NEGATIVE (NEGATIVE) 06/07/18 12:33 Urine Urobilinogen NEGATIVE EU (0.2-1.0) 06/07/18 12:33 Ur Leukocyte Esterase 1+ (NEGATIVE) H 06/07/18 12:33 Urine RBC 3-5 /hpf (0-3) H 06/07/18 12:33 Urine WBC 5-10 /hpf (0-3) H 06/07/18 12:33 Ur Epithelial Cells 4+ /lpf (NONE-1+) H 06/07/18 12:33 Urine Bacteria 2+ /hpf (NONE SEEN) H 06/07/18 12:33 Hyaline Casts 1-5 /lpf (0-1) 06/07/18 12:33 Urine Mucus 2+ /lpf (NONE-1+) H 06/07/18 12:33 Urine Glucose NEGATIVE (NEGATIVE) 06/07/18 12:33 Assessment & Plan Assessment: Altered mental status (Acute) Generalized weakness (Acute) Urinary tract infection (Acute) Plan: Patient seen and evaluated independently and care plan reviewed with ÁNGELA Bennett. Agree with her assessment and plan as outlined above. See separate note for further details.
[2018-06-07] MEDS: Desvenlafaxine Succinate [Pristiq] 25 MG PO SCH (16:59)
[2018-06-07] MEDS: LISINOPRIL 40 MG TAB PO SCH (17:00)
[2018-06-07] MEDS ORDERED: diphenhydrAMINE 25 MG CAP PO ONE (19:00)
[2018-06-07] MEDS: LORazepam 1 MG TAB PO PRN (19:55)
--- NOTE | 2018-06-07 20:44 | HOSPPROG ---
Hospitalist Progress Note Assessment/Plan: 78 yo F with hx of stage IIIa squamous cell lung cancer s/p chemo, xrt and most recently immunotherapy presenting with c/o weakness and malaise # generalized weakness/malaise: overall non specific sxs and no definite etiology--consider uti as next, consider worsening depression or overall FTT in the setting of disease progression with underlying lung cancer. Labs overall relatively normal. Has been recently on durvalumab which certainly could be contributing as well. Will monitor, pt/ot to see. # bacturia: in setting of what appears to be a dirty catch with 4+ epithelial cells but in setting of above without other clear explanation and chronic immune suppression started empirically on ctx in ER and will continue for now. Urine cultures pending, no urinary sxs however. # squamous cell lung cancer: currently undergoing immunotherapy as above, have requested oncology consultation for the morning # chronic respiratory failure: stable on 3L, reviewed cxr which appears stable to improved from prior, respiratory pcr negative # depression: suspects that this is contributing in large part to her presentation, patient acknowledges being down, patient is on pristiq and ritalin at home but may be time to either add something like atypical antipsychotic or refer to [facility] for more aggressive management if this seems to be the underlying cause. nurse request placed, consider IP psych consult in am if no other etiology for her sxs discovered. # copd: without e/o acute exacerbation # htn/hld: continue op regimen # observation status Patient new to my care. Old records reviewed and summarized as above. Care plan reviewed with ER doctor, oncology as well as ÁNGELA Bennett, please see her H&P for further details. Objective: Vital Signs Temp Pulse Resp BP Pulse Ox 36.9 C 105 H 18 129/73 H 97 06/07/18 20:29 06/07/18 20:29 06/07/18 20:29 06/07/18 20:29 06/07/18 20:29 Microbiology 06/07/18 15:40 Respiratory Panel (PCR) - Final Nasal, Sinus - [place] Viral Transport No Organism Detected By Pcr 06/06/18 06/07/18 06/08/18 05:59 05:59 05:59 Intake Total 1800 Balance 1800 PT 14.0 SEC (12.0-15.0) 06/07/18 11:30 INR 1.06 (0.83-1.16) 06/07/18 11:30 ICD10 Worksheet Patient Problems: Problems Problem Status Onset Generalized weakness Acute Dehydration Acute Hemoptysis Acute Lung cancer Acute Vomiting Acute Diarrhea Acute Non-small cell carcinoma of lung Acute Bacterial pneumonia Acute Fracture of rib of left side Acute Hypoxia Acute Urinary tract infection Acute Altered mental status Acute chronic disease mgmt/transitional care Acute Acute bronchitis Acute Bronchospasm Acute Chronic obstructive pulmonary disease with acute exacerbation Acute
[2018-06-07] MEDS: FLUTICASONE/SALMETER 250/50MCG DISKUS IH SCH (22:05)
[2018-06-07] MEDS: HYDROCODONE/APAP 5/325 TAB PO PRN (22:11)
[2018-06-08] MEDS: NS 1,000 ML IV SCH ×2 (03:29→12:06)
[2018-06-08] MEDS: HYDROCODONE/APAP 5/325 TAB PO PRN ×3 (04:17→18:14)
[2018-06-08 05:36] LABS: PLATELET COUNT 234 10^3/uL (150-400)
[2018-06-08] MEDS: LISINOPRIL 40 MG TAB PO SCH (08:50)
[2018-06-08] MEDS: Desvenlafaxine Succinate [Pristiq] 25 MG PO SCH (08:51)
[2018-06-08] MEDS: FLUTICASONE/SALMETER 250/50MCG DISKUS IH SCH ×2 (09:35→21:44)
[2018-06-08] MEDS: BENZONATATE 100 MG CAP PO PRN ×2 (09:44→21:39)
[2018-06-08] MEDS: LIDOCAINE 4%/MENTHOL 1% PATCH TD SCH (09:44)
--- NOTE | 2018-06-08 11:16 | GCON ---
INPATIENT ONCOLOGY CONSULTATION DATE OF CONSULTATION: 06/08/2018 REFERRING PHYSICIAN: Law Baez MD REASON FOR CONSULTATION: History of lung cancer, weakness. HISTORY OF PRESENT ILLNESS: The patient is a 78-year-old woman with a history of stage IIIA non-small cell lung cancer. She is well known to me from my clinic. She presented in April 2014 with a parainfluenza infection and was found to have a 4 cm left lower lobe lung mass. Biopsy showed a squamous cell carcinoma of the lung. Endoscopic bronchoscopy revealed likely involvement of the subcarinal lymph node. She was then treated with definitive chemotherapy and radiation, followed by 2 cycles of chemotherapy with carboplatin and Taxol, followed by immunotherapy with durvalumab, which was started on January 18. The patient has missed numerous appointments with me, telling her that she feels too weak or too tired to get out of bed. We have had a strong suspicion that she has been depressed, and I have encouraged her to see a psychiatrist, which she has not yet done. She has a long history of depression. She also had a fall and sustained some left anterior rib fractures, which were osteoporotic, and there was no evidence of tumor. She is being treated with Vicodin for those, for pain control. A recent CT scan at [facility] on May 25 revealed no evidence of metastasis, including at those rib fractures. She came into the hospital last night with a complaint of overall weakness, and her said he was unable to get her out of bed. Today, she reports that the main reason she came in was due to pain in her rib. She said she has a poor appetite. PAST MEDICAL HISTORY: 1. Stage IIIA lung cancer, as described above. 2. Remote history of breast cancer. 3. COPD. 4. Depression. 5. Osteoporosis. ALLERGIES: Wellbutrin and sulfa. FAMILY HISTORY: Noncontributory. SOCIAL HISTORY: She is a former smoker. She lives with her . REVIEW OF SYSTEMS: Aside from pertinent positives in the HPI, a 14-point review of systems was negative. EXAMINATION: VITAL SIGNS: Her temperature was 36.5, blood pressure 141/91, heart rate 93, oxygen saturation 93% on 3 L. GENERAL: She is a chronically ill -appearing woman, who is in no acute distress and breathing comfortably. She is alert and oriented x3. She has a somewhat flat affect. LUNGS: Clear to auscultation bilaterally. CARDIAC: Regular rate and rhythm. No murmurs, gallops, or rubs. ABDOMEN: Normoactive bowel sounds, nontender, nondistended. EXTREMITIES: Without edema. LABORATORY DATA: Notable for a white count of 4.3, hemoglobin 11.1, platelets of 234. Basic metabolic panel was unremarkable. TSH was 0.43. IMPRESSION: This is a 78-year-old woman with a history of stage IIIA non-small cell lung cancer, on adjuvant immunotherapy since late December. She presents with weakness. I suspect this is due to underlying depression and possibly overuse of narcotics as related to her rib fractures. I reviewed the CT scan from several weeks ago with Dr. Grady, and there is absolutely no evidence of metastatic disease, and I believe these are simple osteoporotic fractures. I would like to order a brain MRI to rule out occult brain metastases as a cause of these symptoms, and also an a.m. cortisol, as immunotherapy has been associated with adrenal insufficiency, which could in theory cause a similar constellation of findings. If all the studies are negative, I would probably try to change to try to find non-narcotic medications to treat her pain, such as a Lidoderm patch and higher doses of ibuprofen. While I do not think she needs an inpatient psychiatry consult, I will re-emphasize with her and her the important need to get proper psychiatric care to help support her. We have talked about this numerous times in the outpatient setting, but she has not really made any moves in that direction. Thank you for the consultation. We will continue to follow the patient with you while she is in the hospital. /[id number]/MODL MTDD
[2018-06-08] MEDS ORDERED: DESVENLAFAXINE SUCCINATE 25 MG PO SCH (12:01)
--- NOTE | 2018-06-08 12:49 | HOSPPROG ---
Hospitalist Progress Note Assessment/Plan: 78 yo F with hx of stage IIIa squamous cell lung cancer s/p chemo, xrt and most recently immunotherapy presenting with c/o weakness and malaise. 1. Generalized weakness, lethargy: Seems most consistent with worsening of her underlying depression. Infectious work up negative. - Discussed with oncology and will obtain brain MRI and AM cortisol (she is on immunetherapy) - Increase pristiq 25 to 50mg - Trying to decrease opioids as below - Hold on inpt psych consult. Will try to have behavioral health meet with patient while here. Needs good outpt psych follow up - Encouraged OOB, up to chair, walk halls, etc 2. H/o rib fractures: Osteoporotic, not r/t mets - Cont home norco, try to wean. Added ibuprofen, lido patch 3. Low TSH: Free T3 also on low end of normal. C/w mild central hypothyroidism but free T4 is normal and I do not think driving #1. 4. Bacturia: On contaminated sample (+epithelial cells). Repeat clean. Stop antibiotics. 5. Depression: Mgmt as above. 6. COPD with chronic resp failure: At baseline 3L. 7. Non-small cell lung cancer: Oncology following. Currently on immunotherapy with durvalumab. 8. HTN, HLD: Home meds VTE ppx: SCDs Code: DNR Dispo: Switch to inpatient, unsafe for dc. hopefully dc 1-2 days Subjective: Not much change since admit. Feelign down. No appetite. Some rib pain that is increasing. No urinary symptoms. Objective: Vital Signs Temp Pulse Resp BP Pulse Ox 36.8 C 100 20 147/96 H 94 06/08/18 12:10 06/08/18 12:10 06/08/18 12:10 06/08/18 12:10 06/08/18 12:10 Microbiology 06/07/18 15:40 Respiratory Panel (PCR) - Final Nasal, Sinus - [place] Viral Transport No Organism Detected By Pcr Laboratory Results 06/08/18 05:10 06/08/18 05:10 06/07/18 06/08/18 06/09/18 05:59 05:59 05:59 Intake Total 2900 500 Balance 2900 500 PT 14.0 SEC (12.0-15.0) 06/07/18 11:30 INR 1.06 (0.83-1.16) 06/07/18 11:30 - Physical Exam Constitutional: no apparent distress, appears nourished, not in pain Eyes: PERRL, anicteric sclera, EOMI Ears, Nose, Mouth, Throat: dry mucous membranes Cardiovascular: regular rate and rhythym, no murmur, rub, or gallop Respiratory: no respiratory distress, no rales or rhonchi, clear to auscultation Gastrointestinal: normoactive bowel sounds, soft, non-tender abdomen, no palpable masses Genitourinary: no bladder fullness, no bladder tenderness, no renal bruits Skin: no rashes or abrasions, no fluctuance, no induration Musculoskeletal: other (rib tenderness ) Neurologic: AAOx3, sensation intact bilaterally Psychiatric: interacting appropriately, depressed ICD10 Worksheet Patient Problems: Problems Problem Status Onset Altered mental status Acute Generalized weakness Acute Urinary tract infection Acute Acute bronchitis Acute Bacterial pneumonia Acute Bronchospasm Acute Chronic obstructive pulmonary disease with acute exacerbation Acute Dehydration Acute Diarrhea Acute Fracture of rib of left side Acute Hemoptysis Acute Hypoxia Acute Lung cancer Acute Non-small cell carcinoma of lung Acute Vomiting Acute chronic disease mgmt/transitional care Acute
[2018-06-08] MEDS: IBUPROFEN 600 MG TAB PO PRN ×2 (13:20→19:45)
--- NOTE | 2018-06-08 13:36 | PDMN ---
Medical Necessity Medical necessity: Pt meets IP criteria as of 06/08/2018 per and JIMMY MG-N ( neurology GR[facility]); los > 2 mn for ongoing tx and evaluation of generalized weakness , lethargy and malaise in the setting of lung cancer with immunotherapy; requiring further workup, med management, behavioral health consult, PT and OT; Comorbid depression, COPD, HTN, HLD.
[2018-06-08] MEDS ORDERED: LORazepam 1 MG TAB PO ONE (14:44)
[2018-06-08] MEDS ORDERED: GADOBUTROL 10 ML VIAL IVP ONE (16:23)
--- NOTE | 2018-06-08 16:59 | ASMTCMCOM ---
CM Note CM Note Notes: Pt is a 78 yo F presenting with weakness, lethargy, lack of appetite, and depression. Pt has stage 3 Lung cancer. Pt is linked for infusion with Dr. Yazan Mack. Pt lives with , Simone (MDPOA). Pt recommends Home PT. CM to follow. Plan: home with [facility]. Date Signed: 06/08/2018 04:58 PM Electronically Signed By:JONATHON Tolentino
[2018-06-08] MEDS ORDERED: PATCH REMOVAL 1 EA PATCH TD SCH (21:00)
[2018-06-08] MEDS: LORazepam 1 MG TAB PO PRN (21:39)
[2018-06-09] MEDS: HYDROCODONE/APAP 5/325 TAB PO PRN ×2 (00:08→05:12)
[2018-06-09] MEDS: ONDANSETRON 4 MG/2 ML VIAL IVP PRN ×2 (04:03→09:05)
[2018-06-09] MEDS: IBUPROFEN 600 MG TAB PO PRN (05:12)
[2018-06-09] MEDS: LISINOPRIL 40 MG TAB PO SCH (09:04)
[2018-06-09] MEDS: LIDOCAINE 4%/MENTHOL 1% PATCH TD SCH (09:05)
[2018-06-09] MEDS: FLUTICASONE/SALMETER 250/50MCG DISKUS IH SCH (09:10)
--- NOTE | 2018-06-09 14:06 | ASMTCMCOM ---
CM Note CM Note Notes: Spoke w/pt and , PT recommends homecare. CM sent referral to Darcy at [facility] and they can accept. Pt states she has palliative care with [facility]. DC Plan: Homecare/ [facility] (RN/SANDRO) Date Signed: 06/09/2018 02:05 PM Electronically Signed By:Kendra Edwards RN
--- NOTE | 2018-06-09 14:10 | SOAPPROG ---
SOAP Progress Note Assessment/Plan: Assessment: Rubia is a 78-year-old female with history of stage IIIA non-small cell lung cancer receiving adjuvant Durva admitted for weakness. 1. Weakness: They tapered down her opiate medications and clinically she has improved significantly. She would like to be discharged today. 06/09/18 14:09 Subjective: No acute events overnight. She feels well this AM. She would like to be discharged. Objective: Vital Signs Temp Pulse Resp BP Pulse Ox 36.9 C 93 16 149/82 H 95 06/09/18 09:46 06/09/18 09:46 06/09/18 09:46 06/09/18 09:46 06/09/18 09:46 06/08/18 06/09/18 06/10/18 05:59 05:59 05:59 Intake Total 1841 Output Total 1050 600 Balance 791 -600 PT 14.0 SEC (12.0-15.0) 06/07/18 11:30 INR 1.06 (0.83-1.16) 06/07/18 11:30 General: Pleasant-appearing female in no acute distress HEENT: Nasal cannula in place, oropharynx is clear Cardiovascular: Regular rhythm Pulmonary: Clear to auscultation bilaterally Psych: Appropriate affect Neuro: Moving all extremities Extremities: Tanxnc-O-Rjey is accessed no cyanosis clubbing Abdomen: Soft nontender nondistended bowel sounds are present ICD10 Worksheet Patient Problems: Problems Problem Status Onset Altered mental status Acute Generalized weakness Acute Urinary tract infection Acute Acute bronchitis Acute Bacterial pneumonia Acute Bronchospasm Acute Chronic obstructive pulmonary disease with acute exacerbation Acute Dehydration Acute Diarrhea Acute Fracture of rib of left side Acute Hemoptysis Acute Hypoxia Acute Lung cancer Acute Non-small cell carcinoma of lung Acute Vomiting Acute chronic disease mgmt/transitional care Acute
--- NOTE | 2018-06-09 15:17 | ASMTLACE ---
LACE Length of stay for Answers: 1 day current admission Acuity / Level of Answers: Yes Care: Did the patient have an inpatient admission? Comorbidities - select Answers: Any tumor (including all that apply lymphoma or leukemia) Chronic pulmonary disease Opioid dependence / Chronic pain Other Notes: HTN; HLD # of Emergency department Answers: 1-2 visits in the last 6 months Social determinants Answers: Mental health diagnosis (anxiety, depression, pers onality disorders, etc.) Score: 17 Date Signed: 06/09/2018 03:16 PM Electronically Signed By:Kendra Edwards RN
[2018-06-09 15:23] VITALS: BP 139/87
--- NOTE | 2018-06-09 15:48 | PDIAF ---
- Diagnosis Code Status: Do Not Resuscitate - Medication Management Discharge Medications: electronically signed and located in the Home Medication List. - Orders Services needed: Home Care, Master Milling Planer Operator, Physical Therapy Home Care Face to Face: I certify that this patient was under my care and that I had the required [id number] encounter meeting the encounter requirements on the discharge day. My findings support the fact that the patient is homebound as defined in Home Care Face to Face Continued: CMS Chapter 7 Medicare Benefits Manual 30.1.1 , The condition of the patient is such that there exists a normal inability to leave home and consequently, leaving home would require a considerable and taxing effort. Isolation Type: None Additional Instructions: I sent a prescription for the increase in your pristiq to your pharmacy. We are also setting up home care PT and OT for you. Please follow up with your oncologist. - Follow Up Care Current Providers and Referrals: Esme Fernandes MD [Primary Care Provider] - As per Instructions
--- NOTE | 2018-06-09 15:48 | PDDCSUM ---
Discharge Summary Discharge Summary: Date of Admission: 06/07/2018 Date of Discharge: 06/09/2018 Consultants: oncology (lEiel) Studies: 1. Brain MRI 2. CXR Discharge Diagnoses: 1. Generalized weakness and lethargy 2. Major depressive disorder 3. Subclinical hypothyroidism 4. Osteoporotic rib fractures 5. Stage IIIa NSCLC of lung currently on durvalumab 6. Bacturia 7. COPD with chronic respiratory failure (3L) 8. HTN Brief Hospital Course: 78 yo F with hx of stage IIIa non-small cell lung cancer s/p chemo, xrt and most recently immunotherapy presented with c/o weakness and malaise. Has missed several appointments with her oncologist because she wasn't motivated to go and too weak, per her . Metabolic and infectious work up during this hospital stay was generally unremarkable (She had bacturia on contaminated UA but repeat UA was clean. Initial urine cx grew Staph hemolyticus but at only 50- 60k CFUs and she had no urinary sxs so no antibiotics were given. Also, her TSH was low but free T4 normal). She also had a brain MRI which was negative for metastatic disease or acute findings. I did increase her pristiq from 25 to 50mg daily. Her affect seemed to improve after a two days and she was felt safe for discharge. She did contract for safety. Medications: Please refer to EMR for complete list. I sent a prescription for increase in dose of desvenlafaxine to her pharmacy, otherwise no changes. Follow Up Plan: 1. Strongly encouraged her to work on getting an outpatient psychiatrist 2. Follow up with oncologist as planned 3. Consider treatment for osteoporosis 4. Monitor thyroid function studies in 4-6 weeks 5. Monitor mood with increase dose of anti-depressant and titrate as necessary Physical Exam: Vitals reviewed, afebrile. Alert and oriented. RRR, lungs with diminished breath sounds at left base, abdomen soft and nt, no rashes or edema.
--- NOTE | 2018-06-09 16:19 | ASMTDCNOTE ---
Case Management Discharge Discharge Order Complete? Answers: Yes Patient to Obtain Answers: via Family Medications Transportation Arranged Answers: Family/Friends Faxed Final Orders Answers: Yes Family Notified Answers: Yes Discharge Comments Notes: D/w MD, final orders faxed. Darcy at [facility] notified, RN to call report. Date Signed: 06/09/2018 03:19 PM Electronically Signed By:Kendra Edwards RN
--- NOTE | 2018-06-11 15:03 | ASDISCHSUM ---
Discharge Information Plan Status:Home with Home Health Medically Cleared to Leave: Discharge Date:06/09/2018 05:20 PM CM D/C Disposition: ADT D/C Disposition:Home Health Service Projected Discharge Date:06/09/2018 11:00 AM Transportation at D/C: Discharge Delay Reason: Follow-Up Date:06/09/2018 11:00 AM Discharge Slot: Final Diagnosis: Placement Information Referral Type:*Home Health Care Services Referral ID:[id number] Provider Name:[facility] Care Address 1:[address] Address 2: City:[place] Selection Factors: State:[place] Patient Contact Information Contact Name:SHANE Relationship:Daughter Address:[birth year][address] Work Phone: [facility]:[place] Alternate Phone: State/Zip Code:[place] [address] Email: Financial Information Financial Class:Medicare Primary Plan Desc:MEDICARE INPATIENT Primary Plan Number:[id number] Secondary Plan Desc: OUT OF [facility] Secondary Plan Number:[id number] Assessment Information LACE LACE Length of stay for Answers: 1 day current admission Acuity / Level of Answers: Yes Care: Did the patient have an inpatient admission? Comorbidities - select Answers: Any tumor (including all that apply lymphoma or leukemia) Chronic pulmonary disease Opioid dependence / Chronic pain Other Notes: HTN; HLD # of Emergency department Answers: 1-2 visits in the last 6 months Social determinants Answers: Mental health diagnosis (anxiety, depression, pers onality disorders, etc.) Score: 17 Date Signed: 06/09/2018 03:16 PM Electronically Signed By:Kendra Edwards RN [facility] CM Progress Note CM Note CM Note Notes: Pt is a 78 yo F presenting with weakness, lethargy, lack of appetite, and depression. Pt has stage 3 Lung cancer. Pt is linked for infusion with Dr. Yazan Mack. Pt lives with , Simone ([facility]). Pt recommends Home PT. CM to follow. Plan: home with [facility]. Date Signed: 06/08/2018 04:58 PM Electronically Signed By:JONATHON Tolentino [facility] CM Progress Note CM Note CM Note Notes: Spoke w/pt and , PT recommends homecare. CM sent referral to Darcy at [facility] and they can accept. Pt states she has palliative care with [facility] Plan: Homecare/ [facility] (IZA/SANDRO) Date Signed: 06/09/2018 02:05 PM Electronically Signed By:Kendra Edwards RN Case Management Discharge Plan Note Case Management Discharge Discharge Order Complete? Answers: Yes Patient to Obtain Answers: via Family Medications Transportation Arranged Answers: Family/Friends Faxed Final Orders Answers: Yes Family Notified Answers: Yes Discharge Comments Notes: D/w , final orders faxed. Darcy at [facility] notified, IZA to call report. Date Signed: 06/09/2018 03:19 PM Electronically Signed By:Kendra Edwards RN Intervention Information Intervention Type:*Occurence 72 Date of Service:06/10/2018 06:17 AM Patient Type:Inpatient Staff Member:IZA Brewer, Shelbi Hours: Discipline: Severity: Comment:
== END 2018-06-09 17:20 | disposition home health service (06) | DRG 948 ==
LOC: F1N 16:27 → OBSVTOIN 06-08 12:53
PROVIDERS: ADMIT Internal Medicine; ATTEND Internal Medicine
DX: R53.1 Weakness (principal); F32.9 Major depressive disorder, single episode, unspecified; J96.10 Chronic respiratory failure, unspecified whether with hypoxia or hypercapnia; C34.90 Malignant neoplasm of unspecified part of unspecified bronchus or lung; J44.9 Chronic obstructive pulmonary disease, unspecified; E02 Subclinical iodine-deficiency hypothyroidism; M84.48XS Pathological fracture, other site, sequela; I10 Essential (primary) hypertension; E78.5 Hyperlipidemia, unspecified; M54.40 Lumbago with sciatica, unspecified side; Z85.3 Personal history of malignant neoplasm of breast; Z99.81 Dependence on supplemental oxygen; F17.210 Nicotine dependence, cigarettes, uncomplicated; Z23 Encounter for immunization; R82.71 Bacteriuria
CPT/HCPCS: 82607-90; 84481-90; 96374; 97116-GP; 97161-GP; 97165-GO; 97535-GO; A9585; G0008; G0378; G8978-GP-CJ; G8979-GP-CI; G8987-GO-CK; G8988-GO-CI; J0696; J1642; J2405

== ENCOUNTER 2018-08-06 09:33 | Observation (INO) | payer OTHER, BC ==
[2018-08-06] MEDS ORDERED: NS 1,000 ML IV ONE (10:29)
--- NOTE | 2018-08-06 10:29 | EDPHY ---
H & P Stated Complaint: Fell x5 this am, back and sacral pain Time Seen by Provider: 08/06/18 10:19 HPI/ROS: CHIEF COMPLAINT: Sleepiness and fall HISTORY OF PRESENT ILLNESS: The patient is a 78-year-old female with a history of non-small cell lung cancer without metastasis, COPD, chronic lumbar sciatic pain status post fusion in 2003 at [place] as well as chronic weakness. states that she often falls at night but last night she told him that she fell 5 times. He states that she did not wake him up. She states that she hit her head. No hematoma abrasion or laceration. She is very sleepy this morning which he states is slightly worse than usual. She recently stopped using Vicodin but has restarted using Ativan and also started using CBD and THC tablets. All in an effort to control her chronic sciatic pain. She is currently being managed by pain management. She denies any pain or injury to her extremities neck or head. She falls asleep while talking to you. states that they are trying to schedule a lumbar MRI. Severity: None Modifying factors: None REVIEW OF SYSTEMS: Constitutional: denies: chills, fever, recent illness, recent injury EENTM: denies: blurred vision, double vision, nose congestion Respiratory: denies: cough, shortness of breath Cardiac: denies: chest pain, irregular heart rate, lightheadedness, palpitations Gastrointestinal/Abdominal: denies: abdominal pain, diarrhea, nausea, vomiting, blood streaked stools Genitourinary: denies: dysuria, frequency, hematuria, pain Musculoskeletal: denies: joint pain, muscle pain Skin: denies: lesions, rash, jaundice, bruising Neurological: See HPI denies: headache, numbness, paresthesia, tingling, dizziness, weakness Hematologic/Lymphatic: denies: blood clots, easy bleeding, easy bruising Immunologic/allergic: denies: HIV/AIDS, transplant 10 systems reviewed and negative except as noted EXAM: GENERAL: Sleepy but arousable, well-nourished and in no acute distress. HEAD: Atraumatic, normocephalic. EYES: Pupils equal round and reactive to light not small. extraocular movements intact, sclera anicteric, conjunctiva are normal. ENT: TMs normal, nares patent, oropharynx clear without exudates. Moist mucous membranes. NECK: Normal range of motion, supple without lymphadenopathy or JVD. LUNGS: Breath sounds clear to auscultation bilaterally and equal. No wheezes rales or rhonchi. HEART: Regular rate and rhythm without murmurs, rubs or gallops. ABDOMEN: Soft, nontender, normoactive bowel sounds. No guarding, no rebound. No masses appreciated. BACK: No CVA tenderness, no spinal tenderness, step-offs or deformities EXTREMITIES: Normal range of motion, no pitting or edema. No clubbing or cyanosis. NEUROLOGICAL: Cranial nerves II through XII grossly intact. Normal speech, normal gait. 5/5 strength, normal movement in all extremities, normal sensation , normal reflexes PSYCH: Sleeping but easily aroused, sometimes falls back asleep while talking to. Normal mood, normal affect. SKIN: Warm, dry, normal turgor, no visible rashes or lesions. Source: Patient - Personal History Current Tetanus/Diphtheria Vaccine: Yes Current Tetanus Diphtheria and Acellular Pertussis (TDAP): Yes Tetanus Vaccine Date: < 10 years - Medical/Surgical History Hx Asthma: No Hx Chronic Respiratory Disease: Yes Hx Diabetes: No Hx Cardiac Disease: No Hx Renal Disease: No Hx Cirrhosis: No Hx Alcoholism: No Hx HIV/AIDS: No Hx Splenectomy or Spleen Trauma: No Other PMH: sciatica, HTN, multiple back sx, breast CA, lung cancer, current chemo and radiaiton, cristina-hip, left ankle screws, hypodactly- right hand, falls , rib fxs, exsmoker - Family History Significant Family History: No pertinent family hx - Social History Smoking Status: Current some day smoker Alcohol Use: Sober Drug Use: None Constitutional: Initial Vital Signs Temperature (C) 37.1 C 08/06/18 09:39 Heart Rate 95 08/06/18 09:39 Blood Pressure 174/108 H 08/06/18 09:39 O2 Sat (%) 91 L 08/06/18 09:39 O2 Delivery Mode Nasal Cannula O2 (L/minute) 3 Allergies/Adverse Reactions: bupropion Allergy (Unknown, Unverified 06/09/18 17:08) Sulfa (Sulfonamide Antibiotics) Allergy (Unknown, Unverified 06/09/18 17:08) Hives Home Medications: Medication Instructions Recorded Benzonatate 100 mg PO TID PRN 09/29/17 LORazepam [Ativan (*)] 1 mg PO HS PRN 06/07/18 Methylphenidate HCl [Ritalin 5mg 5 mg PO DAILY 06/07/18 (*)] Ondansetron Odt [Zofran Odt 4 mg 4 - 8 mg PO Q8HRS PRN 06/07/18 (*)] Desvenlafaxine Succinate [Pristiq] 50 mg PO DAILY #30 tab.er.24h 06/09/18 Albuterol [Proventil Inhaler HFA 1 - 2 puffs IH HS 08/06/18 (*)] Aspirin [Aspirin 81mg (*)] 162 mg PO HS 08/06/18 Fluticasone Hfa 110 Mcg [Flovent 1 puffs IH HS 08/06/18 110 MCG Hfa MDI (*)] Gabapentin [Neurontin 300 MG (*)] 300 mg PO DAILY 08/06/18 Gabapentin [Neurontin 300 MG (*)] 900 mg PO HS 08/06/18 Herbals/Supplements -Info Only 1 ea PO DAILY 08/06/18 Ibuprofen [Motrin (*)] 400 mg PO DAILY PRN 08/06/18 Lisinopril [Zestril 20 mg (*)] 20 mg PO DAILY 08/06/18 Medical Decision Making - Diagnostics Imaging Results: Imaging Impressions Cervical Spine CT 08/06/18 10:31 Impression: 1. No acute intracranial process or cervical spine fracture/subluxation. 2. Age-appropriate generalized cerebral volume loss with sequela of chronic microvascular ischemic disease. 3. Moderate degenerative spondylosis of the cervical spine. Grade 1 anterolisthesis of C4 on C5 is likely degenerative. Findings and recommendations discussed with YVONNE MATHEWS at 1138 hour, 2018. Head CT 08/06/18 10:31 Impression: 1. No acute intracranial process or cervical spine fracture/subluxation. 2. Age-appropriate generalized cerebral volume loss with sequela of chronic microvascular ischemic disease. 3. Moderate degenerative spondylosis of the cervical spine. Grade 1 anterolisthesis of C4 on C5 is likely degenerative. Findings and recommendations discussed with YVONNE MATHEWS at 1138 hour, 2018. Imaging: Discussed imaging studies w/ call manager Radiologist ED Course/Re-evaluation: 11:45 a.m. the patient remains somnolecent but is arousable. She desaturates while sleeping. Lab work and imaging is reassuring. I very much suspect that this is medication effect. Discussed options with who would like to admit her to the hospital for medication adjustment and pain management evaluation Differential Diagnosis: Partial list of the Differential diagnosis considered include but were not limited to; medication effect, sciatica, overdose, head injury and although unlikely based on the history and physical exam, I also considered neck injury, sepsis, acute coronary disease. I discussed these differential diagnoses and the plan with the patient as well as the usual and expected course. The patient understands that the diagnosis is provisional and that in medicine we are not always correct and that further workup is often warranted. Usual and customary warnings were given. All of the patient's questions were answered. The patient was instructed to return to the emergency department should the symptoms at all worsen or return, otherwise to followup with the physician as we discussed. - Data Points Laboratory Results: Laboratory Results 08/06/18 10:55 08/06/18 10:55 08/06/18 08/06/18 08/06/18 10:55 10:55 10:55 WBC 6.25 10^3/uL 10^3/uL (3.80-9.50) RBC 3.50 10^6/uL L 10^6/uL (4.18-5.33) Hgb 11.1 g/dL L g/dL (12.6-16.3) Hct 34.2 % L % (38.0-47.0) MCV 97.7 fL fL (81.5-99.8) MCH 31.7 pg pg (27.9-34.1) MCHC 32.5 g/dL g/dL (32.4-36.7) RDW 13.0 % % (11.5-15.2) Plt Count 258 10^3/uL 10^3/uL (150-400) MPV 8.5 fL L fL (8.7-11.7) Neut % (Auto) 66.6 % % (39.3-74.2) Lymph % (Auto) 13.1 % L % (15.0-45.0) [place] % (Auto) 12.0 % % (4.5-13.0) Eos % (Auto) 7.5 % % (0.6-7.6) Baso % (Auto) 0.5 % % (0.3-1.7) Nucleat RBC Rel Count 0.0 % % (0.0-0.2) Absolute Neuts (auto) 4.16 10^3/uL 10^3/uL (1.70-6.50) Absolute Lymphs (auto) 0.82 10^3/uL L 10^3/uL (1.00-3.00) Absolute Monos (auto) 0.75 10^3/uL 10^3/uL (0.30-0.80) Absolute Eos (auto) 0.47 10^3/uL H 10^3/uL (0.03-0.40) Absolute Basos (auto) 0.03 10^3/uL 10^3/uL (0.02-0.10) Absolute Nucleated RBC 0.00 10^3/uL 10^3/uL (0-0.01) Immature Gran % 0.3 % % (0.0-1.1) Immature Gran # 0.02 10^3/uL 10^3/uL (0.00-0.10) PT 13.1 SEC SEC (12.0-15.0) INR 0.97 (0.83-1.16) APTT 35.3 SEC SEC (23.0-38.0) Sodium 135 mEq/L mEq/L (135-145) Potassium 4.4 mEq/L mEq/L (3.5-5.2) Chloride 108 mEq/L mEq/L (97-110) Carbon Dioxide 22 mEq/l mEq/l (22-31) Anion Gap 5 mEq/L L mEq/L (6-14) BUN 23 mg/dL mg/dL (7-23) Creatinine 0.8 mg/dL mg/dL (0.6-1.0) Estimated GFR > 60 Glucose 90 mg/dL mg/dL (70-100) Calcium 9.2 mg/dL mg/dL (8.5-10.4) Ethyl Alcohol < 10 mg/dL mg/dL (0-10) Medications Given: Sodium Chloride (Ns) 1,000 mls @ 100 mls/hr IV CONT ASTRID Stop: 08/07/18 23:29 Last Admin: 08/06/18 15:06 Dose: 1,000 mls Discontinued Medications Sodium Chloride (Ns) 1,000 mls @ 0 mls/hr IV ONCE ONE; Wide Open PRN Reason: Protocol Stop: 08/06/18 10:30 Last Admin: 08/06/18 11:11 Dose: 1,000 mls Departure - Departure Disposition: [facility] Inpatient Acute Clinical Impression: Altered mental status, unspecified Qualifiers: Altered mental status type: unspecified Qualified Code(s): R41.82 - Altered mental status, unspecified Condition: Fair
[2018-08-06 11:08] LABS: PLATELET COUNT 258 10^3/uL (150-400)
[2018-08-06 11:30] LABS: INR 0.97 (0.83-1.16); PROTIME(PATIENT) 13.1 SEC (12.0-15.0)
--- NOTE | 2018-08-06 13:12 | ASMTCMCOM ---
CM Note CM Note Notes: Chart reviewed. See ED report for details. Patient is sleeping when I met with her Simone prior to transfer upstairs. Simone explains that patient has had several falls recently related to changes in her medication. He states that patient stopped taking her hydrocodone a few days ago but has started taking Ativan at night, as well as THC and CBD oil for her chronic sciatica pain. Simone tells me that patient normally functions very well until these recent changes in her medications CM to follow. Anticipate home independently vs. Date Signed: 08/06/2018 01:12 PM Electronically Signed By:Joya Joseph RN
[2018-08-06] MEDS ORDERED: ONDANSETRON 4 MG/2 ML VIAL IVP PRN (13:25)
[2018-08-06] MEDS ORDERED: ONDANSETRON DISINTEGRATING 4 MG TAB PO PRN (13:25)
[2018-08-06] MEDS ORDERED: NS 1,000 ML IV SCH (13:30)
--- NOTE | 2018-08-06 13:48 | PDGENHP ---
History and Physical - Chief Complaint Falls, sleepiness - History of Present Illness This is a 78 y/o female with history of stage IIIa squamous cell lung cancer s/ p chemotherapy, radiation, and most recently immunotherapy presenting with tiredness and multiple falls within one day. , Simone, is at bedside while pt is sleeping however she is easy to arouse. He is a poor historian. The pt is seen lying in bed, somnolent but as stated before, easy to arouse but falls back asleep quickly. She, too, is a poor historian however I was informed of the following from both the pt and : she fell 5 times last . She did hit her head but never lost consciousness. She fell during the middle of the night trying to make it to the kitchen. She could not tell me if there were any prodromal factors. Denies chest pains, palpitations, fevers, chills, vomiting, diarrhea. She had been previously admitted here in May 2018 with similar symptoms; metabolic and infectious work up during that stay was unremarkable and her pristig was increased from 25 mg to 50 mg daily which seemed to improve her affect. A major component to her presentation is thought to be her depression as she has missed several appointments with her oncologist (Dr. Mack) because she wasn't motivated to go and too weak. Head and cervical spine CT today reveal no intracranial processes or cervical spine fracture. Per , she stopped using Vicodin about a month ago however he thinks she found some extra tablets lying around and has taken those. Up until 2 weeks ago, she was administering herself all of her medications so he has now taken over giving her medications. She started taking Ativan 2 tablets 0.5 mg at nighttime about a week ago. She also started to take CBD Stratos 15:1 (33 mg CBD, 5 mg THC) tablets and THC 1:1 topical oil for her back pain about a week ago as well. He isn't sure how much she uses and she is not able to tell me how much she takes. She responds appropriately to questions (date, month, name, place). She is being admitted for observation and monitoring. Past Medical History 1. Non-small cell lung cancer, undergoing treatment with Dr.David Mack 2. COPD (on 3 L [place] oxygen at home) 3. Depression 4. Hx of breast cancer 5. Hypertension 6. Hyperlipidemia Past Surgical History 1. Right hand surgery 2. Hysterectomy 3. Left ankle arthroplasty 4. Left shoulder arthroscopy Social 1. , is Simone. 2. Palliative care comes to house twice a month 3. Denies tobacco or other illicit drug use besides cannabis. Denies alcohol use. History Information - Allergies/Home Medication List Allergies/Adverse Reactions: bupropion Allergy (Unknown, Unverified 06/09/18 17:08) Sulfa (Sulfonamide Antibiotics) Allergy (Unknown, Unverified 06/09/18 17:08) Hives Home Medications: Benzonatate 100 mg PO TID PRN 09/29/17 [Last Taken 08/05/18] LORazepam [Ativan (*)] 1 mg PO HS PRN 06/07/18 [Last Taken 08/04/18] Methylphenidate HCl [Ritalin 5mg (*)] 5 mg PO DAILY 06/07/18 [Last Taken ] Ondansetron Odt [Zofran Odt 4 mg (*)] 4 - 8 mg PO Q8HRS PRN 06/07/18 [Last Taken Unknown] Albuterol [Proventil Inhaler HFA (*)] 1 - 2 puffs IH HS 08/06/18 [Last Taken 03/14] Aspirin [Aspirin 81mg (*)] 162 mg PO HS 08/06/18 [Last Taken 08/05/18] Fluticasone Hfa 110 Mcg [Flovent 110 MCG Hfa MDI (*)] 1 puffs IH HS 08/06/18 [ Last Taken 08/04/18] Gabapentin [Neurontin 300 MG (*)] 300 mg PO DAILY 08/06/18 [Last Taken 08/05/18] Gabapentin [Neurontin 300 MG (*)] 900 mg PO HS 08/06/18 [Last Taken 08/05/18] Herbals/Supplements -Info Only 1 ea PO DAILY 08/06/18 [Last Taken Unknown] Ibuprofen [Motrin (*)] 400 mg PO DAILY PRN 08/06/18 [Last Taken Unknown] Lisinopril [Zestril 20 mg (*)] 20 mg PO DAILY 08/06/18 [Last Taken 08/05/18] I have personally reviewed and updated: family history, medical history, social history, surgical history Past Medical History: See HPI List - Past Medical History cancer, hypertension (stage 3 scc lung) - Surgical History Reports: no pertinent surgical hx Additional surgical history: See HPI list - Family History Positive for: non-pertinent - Social History Smoking Status: Former smoker Alcohol Use: Sober Drug Use: Marijuana Additional social history: Review of Systems Review of Systems: ROS: 10pt was reviewed & negative except for what was stated in HPI & below Constitutional: Reports: malaise, recent illness, weakness EENMT: Reports: no symptoms Cardiac: Reports: no symptoms Respiratory: Reports: no symptoms Gastrointestinal: Reports: nausea Genitourinary: Reports: no symptoms Muscolosketal: Reports: back pain Skin: Reports: no symptoms Neurological: Reports: depressed, weakness Hematologic/Lymphatic: Reports: no symptoms Immunologic/Allergy: Reports: other (See allergy list) Physical Exam Physical Exam: Lab data and imaging were reviewed. Case discussed with admitting physician, Dr. Kristin Thompson Temp Pulse Resp BP Pulse Ox 36.8 C 75 20 142/81 H 99 08/06/18 13:08 08/06/18 13:08 08/06/18 13:08 08/06/18 13:08 08/06/18 13:08 O2 (L/minute) 3 Constitutional: obese, other (Somnolent) Eyes: PERRL, anicteric sclera, EOMI Ears, Nose, Mouth, Throat: hearing normal, ears appear normal, no oral mucosal ulcers, dry mucous membranes Cardiovascular: regular rate and rhythym, no murmur, rub, or gallop, No edema Peripheral Pulses: 2+: dorsalis-pedis (R) (Radial 2+), dorsalis-pedis (L) ( Radial 2+) Respiratory: reduced air movement (Bilateral lower bases) Gastrointestinal: normoactive bowel sounds, soft, non-tender abdomen, no palpable masses Genitourinary: no bladder fullness, no bladder tenderness Skin: warm, normal color, no rashes or abrasions, no fluctuance, no induration, No mottled Musculoskeletal: generalized weakness Neurologic: AAOx3, sensation intact bilaterally, weakness, CN II-XII Intact Psychiatric: not anxious, not encephalopathic, thought process linear, depressed , flat affect Lymph, Heme, Immunologic: no cervical LAD, no supraclavicular LAD Lab Data & Imaging Review 08/06/18 10:55 08/06/18 10:55 WBC 6.25 10^3/uL (3.80-9.50) 08/06/18 10:55 RBC 3.50 10^6/uL (4.18-5.33) L 08/06/18 10:55 Hgb 11.1 g/dL (12.6-16.3) L 08/06/18 10:55 Hct 34.2 % (38.0-47.0) L 08/06/18 10:55 MCV 97.7 fL (81.5-99.8) 08/06/18 10:55 MCH 31.7 pg (27.9-34.1) 08/06/18 10:55 MCHC 32.5 g/dL (32.4-36.7) 08/06/18 10:55 RDW 13.0 % (11.5-15.2) 08/06/18 10:55 Plt Count 258 10^3/uL (150-400) 08/06/18 10:55 MPV 8.5 fL (8.7-11.7) L 08/06/18 10:55 Neut % (Auto) 66.6 % (39.3-74.2) 08/06/18 10:55 Lymph % (Auto) 13.1 % (15.0-45.0) L 08/06/18 10:55 [place] % (Auto) 12.0 % (4.5-13.0) 08/06/18 10:55 Eos % (Auto) 7.5 % (0.6-7.6) 08/06/18 10:55 Baso % (Auto) 0.5 % (0.3-1.7) 08/06/18 10:55 Nucleat RBC Rel Count 0.0 % (0.0-0.2) 08/06/18 10:55 Absolute Neuts (auto) 4.16 10^3/uL (1.70-6.50) 08/06/18 10:55 Absolute Lymphs (auto) 0.82 10^3/uL (1.00-3.00) L 08/06/18 10:55 Absolute Monos (auto) 0.75 10^3/uL (0.30-0.80) 08/06/18 10:55 Absolute Eos (auto) 0.47 10^3/uL (0.03-0.40) H 08/06/18 10:55 Absolute Basos (auto) 0.03 10^3/uL (0.02-0.10) 08/06/18 10:55 Absolute Nucleated RBC 0.00 10^3/uL (0-0.01) 08/06/18 10:55 Immature Gran % 0.3 % (0.0-1.1) 08/06/18 10:55 Immature Gran # 0.02 10^3/uL (0.00-0.10) 08/06/18 10:55 PT 13.1 SEC (12.0-15.0) 08/06/18 10:55 INR 0.97 (0.83-1.16) 08/06/18 10:55 APTT 35.3 SEC (23.0-38.0) 08/06/18 10:55 Sodium 135 mEq/L (135-145) 08/06/18 10:55 Potassium 4.4 mEq/L (3.5-5.2) 08/06/18 10:55 Chloride 108 mEq/L (97-110) 08/06/18 10:55 Carbon Dioxide 22 mEq/l (22-31) 08/06/18 10:55 Anion Gap 5 mEq/L (6-14) L 08/06/18 10:55 BUN 23 mg/dL (7-23) 08/06/18 10:55 Creatinine 0.8 mg/dL (0.6-1.0) 08/06/18 10:55 Estimated GFR > 60 08/06/18 10:55 Glucose 90 mg/dL (70-100) 08/06/18 10:55 Calcium 9.2 mg/dL (8.5-10.4) 08/06/18 10:55 Ethyl Alcohol < 10 mg/dL (0-10) 08/06/18 10:55 Assessment & Plan Plan: This is a 78 y/o female with history of stage IIIa squamous cell lung cancer presenting with chronic generalized weakness, falls, and excessive sleepiness. She was recently admitted in May 2018 with very similar symptoms and all testing and imaging were negative or unremarkable for a definitive cause of symptoms. Differential diagnoses are: polypharmacy, overdosing, depression, hypothyroidism, UTI, and unlikely pulmonary embolism. #Generalized weakness/malaise: overall non-specific symptoms and no definite etiology. Possible urinary tract infection - UA is pending. She is afebrile. I considered worsening depression in the setting of disease progression with underlying lung cancer. Labs overall relatively normal. Has been on durvalumab which could be contributing. Continue to monitor. PT/OT to evaluate and treat. #Depression: This continues to be a problem for the pt as she acknowledges her depression. She is on pristig and ritalin at home. Uncertain whether the pt takes more than what is prescribed for her medications including pain medications. She is also taking CBD w/THC tablets and THC topical oil - once again, I'm uncertain if she is taking this appropriately. I placed a psychiatric consult and notified Dr. Maris Flynn of this. reports trying to make an appointment with an outpatient psychiatrist but have not heard back yet and he can't remember the name. I will also consider RN Behavioral Health Consult if she did not receive one in May 2018. #Squamous cell lung cancer: Currently undergoing immunotherapy. Will request oncology consultations for the morning. #Chronic respiratory failure: stable on 3L #Hypothyroidism: prior visit, she had a low TSH. T4 was normal and T3 was also on the low end of normal. I don't think this is a driving factor of her weakness. #HTN: continue home medications Diet: Regular VTE ppx: SCDs Code: Full Dispo: Admit to obs
--- NOTE | 2018-08-06 16:21 | HOSPPROG ---
Hospitalist Progress Note Assessment/Plan: 78-year-old admitted with weakness and falls. Patient reviewed with Flory Bennett who did the admission. Briefly 78-year-old with non-small cell adenocarcinoma of the lung and chronic back pain is admitted with increased falls. She was admitted in May with similar complaints and discharged on gabapentin, [place]. She did well and they eventually discontinued the [place] however she resumed her lorazepam at night because she was having more difficulty sleeping. In addition to this she started taking Benadryl at night and CBD oil with THC. Her does note that over the last few weeks when she was taking more medications at night to sleep she was falling more. She would complain of falling once or twice at night occasionally however the night prior to admission she complained to falling 5 times so he brought her in to the ER for further evaluation treatment. She does admit starting CBD oil and THC a couple days ago, additionally she has been taking lorazepam before bed which she doses herself. Her does admit that sometimes she takes more than she has been prescribed. Past medical history, social history, medications and allergies are reviewed with [employer] STATISTICAL PROGRAMMER please see her note for full details PHYSICAL EXAM DONE, AGREE WITH [employer] STATISTICAL PROGRAMMER Assessment: Discussed with and PE, agree with her assessment Briefly: Admit for observation Hold centrally acting medications, specifically the CBD oil and the lorazepam PT and OT evaluation Psychiatric evaluation given her depression and insomnia that she blames for her current issues. Objective: Vital Signs Temp Pulse Resp BP Pulse Ox 36.8 C 85 16 146/91 H 96 08/06/18 15:34 08/06/18 15:34 08/06/18 15:34 08/06/18 15:34 08/06/18 15:34 08/05/18 08/06/18 08/07/18 05:59 05:59 05:59 Intake Total 1000 Output Total 70 Balance 930 PT 13.1 SEC (12.0-15.0) 08/06/18 10:55 INR 0.97 (0.83-1.16) 08/06/18 10:55 ICD10 Worksheet Patient Problems: Problems Problem Status Onset Generalized weakness Acute Dehydration Acute Hemoptysis Acute Lung cancer Acute Vomiting Acute Diarrhea Acute Non-small cell carcinoma of lung Acute Bacterial pneumonia Acute Fracture of rib of left side Acute Hypoxia Acute Urinary tract infection Acute Altered mental status Acute chronic disease [facility]/transitional care Acute Acute bronchitis Acute Bronchospasm Acute Chronic obstructive pulmonary disease with acute exacerbation Acute
[2018-08-06] MEDS: LIDOCAINE 4%/MENTHOL 1% PATCH TD SCH (16:54)
[2018-08-06] MEDS: ACETAMINOPHEN 500 MG TAB PO PRN (16:56)
[2018-08-06] MEDS ORDERED: PATCH REMOVAL 1 EA PATCH TD SCH (21:00)
[2018-08-06] MEDS ORDERED: ALBUTEROL 60 PUFFS/8 GM MDI IH SCH (21:00)
[2018-08-06] MEDS ORDERED: GABAPENTIN 300 MG CAP PO SCH (21:00)
[2018-08-06] MEDS ORDERED: FLUTICASONE HFA 110 MCG MDI IH SCH (21:00)
[2018-08-06] MEDS ORDERED: ASPIRIN 81 MG CHEWABLE TAB PO SCH (21:00)
[2018-08-07] MEDS: ACETAMINOPHEN 500 MG TAB PO PRN (08:57)
[2018-08-07] MEDS: LIDOCAINE 4%/MENTHOL 1% PATCH TD SCH (08:59)
[2018-08-07] MEDS ORDERED: Desvenlafaxine Succinate [Pristiq] 50 MG PO SCH (09:00)
[2018-08-07] MEDS ORDERED: LISINOPRIL 20 MG TAB PO SCH (09:00)
[2018-08-07] MEDS ORDERED: GABAPENTIN 300 MG CAP PO SCH ×2 (09:00→21:00)
--- NOTE | 2018-08-07 14:55 | ASMTCMCOM ---
CM Note CM Note Notes: Plan of care reviewed in rounds. Falls at home likely related to polypharmacy. Normally functions independently. No anticipated needs. CM available should needs arise. Plan: Dc to home when medically cleared. Date Signed: 08/07/2018 02:55 PM Electronically Signed By:Jessica Solitario RN
--- NOTE | 2018-08-07 15:30 | PDIAF ---
- Diagnosis Diagnosis: lung cancer, falls Code Status: Full Code - Medication Management Discharge Medications: electronically signed and located in the Home Medication List. PICC Care - Routine: N/A - Orders Services needed: Home Care, Registered Nurse, Physical Therapy, Occupational Therapy Home Care Face to Face: I certify that this patient was under my care and that I had the required [id number] encounter meeting the encounter requirements on the discharge day. My findings support the fact that the patient is homebound as defined in Home Care Face to Face Continued: CMS Chapter 7 Medicare Benefits Manual 30.1.1 , The condition of the patient is such that there exists a normal inability to leave home and consequently, leaving home would require a considerable and taxing effort. Isolation Type: None Diet Recommendation: no restrictions on diet Additional Instructions: To prevent falls: Use a front wheeled walker. Stop the Ativan, Benadryl and marijuana. Decrease Gabapentin to 300 mg twice daily. Wear your O2 always to prevent low oxygen levels as contributing to falls. Follow up with your PCP. - Follow Up Care Current Providers and Referrals: Esme Fernandes MD [Primary Care Provider] - As per Instructions
[2018-08-07] MEDS ORDERED: hydrALAZINE 10 MG TAB PO ONE (15:54)
--- NOTE | 2018-08-07 16:01 | ASMTLACE ---
NOE Length of stay for Answers: 1 day current admission Comorbidities - select Answers: Any tumor (including all that apply lymphoma or leukemia) History of falls Opioid dependence / Chronic pain # of Emergency department Answers: 1-2 visits in the last 6 months Score: 11 Date Signed: 08/07/2018 04:00 PM Electronically Signed By:Jessica Solitario RN
--- NOTE | 2018-08-07 16:04 | ASMTDCNOTE ---
Case Management Discharge Discharge Order Complete? Answers: Yes Patient to Obtain Answers: via Family Medications Transportation Arranged Answers: Family/Friends Faxed Final Orders Answers: Yes Family Notified Answers: Yes Discharge Comments Notes: Dc to home with [facility]. Has had [facility] in the past[facility] Date Signed: 08/07/2018 04:03 PM Electronically Signed By:Jessica Solitario RN
--- NOTE | 2018-08-07 16:11 | GDS ---
[f rep st] DISCHARGE SUMMARY DISCHARGE DIAGNOSES: 1. Squamous cell lung cancer. 2. Chronic hypoxemic respiratory failure secondary to squamous cell lung cancer and COPD, on 3 L/min council at baseline. 3. Depression. 4. Mechanical falls, suspected secondary to polypharmacy versus hypoxemia. She reports not wearing her O2 during these episodes. 5. Hypertension. 6. Hyperlipidemia. HISTORY: For details, please see history and physical dated August 06, 2018. In brief, the patien michi is a 78-year-old female with history of depression. This is a 78-year-old female with history of s quamous cell lung cancer, status post chemotherapy, radiation, and most recently immunotherapy, who p resented to the emergency department after multiple falls. Apparently, she has been taking Ativan at bedtime, possibly more than prescribed. In addition, she has been using Benadryl as well as a marij uana tablet. She is also on gabapentin. Workup in the ER revealed no evidence of infection. Her bl ood alcohol level was negative. She was admitted to the hospital for further evaluation. HOSPITAL COURSE: Patient was admitted to the med/surg unit. She has been maintained on her home oxy gen level of 3 L/minute. It is suspected her falls may be related to polypharmacy, given her use of Ativan, Vicodin, marijuana, Benadryl, and gabapentin. It sounds like Ativan is a relatively new medi cation for her. I recommend she stop this given its association with increased fall risk. In additi on, I recommend she stop the marijuana and Benadryl. I have decreased her gabapentin to 300 mg twice daily. We also discussed the importance of her continuing to wear her O2 all the time, as she notes her falls occurred when she was not wearing her oxygen. Chest x-ray here shows no evidence of acute pneumonia. She is coughing. It is possible she has a viral infection, though it seems unlikely amalia t would be the sole factor of why she is having these falls. A respiratory viral panel was ordered, however has not been completed yet. I do not think this needs to hold up her hospital discharge. Divina grimaldo was evaluated by our physical therapy team and they deem her safe to return home. They recommend s he purchase a front wheel walker, and this was reinforced to the patient. In addition, we will arran for home health RN, PT, OT. DISPOSITION: Patient is discharged home with home health services including RN, PT, OT. DISCHARGE MEDICATIONS: Please see [facility] completed outpatient medication list. Medications on discharge include Lidoderm patch, p.r.n. Tylenol. Changed medications: Her Neurontin is decreased to 300 mg twice daily. Gabapentin is decreased to 3 00 mg twice daily. Discontinued medications: Ativan is discontinued. It sounds like this is a relatively new prescript ion, and she takes just a milligram at bedtime. Thus, I will defer a taper, as I think her fall risk likely outweighs her withdrawal risk. She will continue all other outpatient medications as previously prescribed. FOLLOWUP: Patient will follow up with her primary care physician, Dr. Esme Fernandes within the week. /[id number]/MODL
[2018-08-07 17:48] VITALS: BP 162/95
== END 2018-08-07 19:16 | disposition home or self-care (01) ==
LOC: F1N 13:45
PROVIDERS: ADMIT Internal Medicine; ATTEND Hospitalist
DX: R53.1 Weakness (principal); C34.90 Malignant neoplasm of unspecified part of unspecified bronchus or lung; J96.11 Chronic respiratory failure with hypoxia; R29.6 Repeated falls; E86.9 Volume depletion, unspecified; W19.XXXA Unspecified fall, initial encounter; Y92.019 Unspecified place in single-family (private) house as the place of occurrence of the external cause; J44.9 Chronic obstructive pulmonary disease, unspecified; F32.9 Major depressive disorder, single episode, unspecified; I10 Essential (primary) hypertension; E78.5 Hyperlipidemia, unspecified; M54.40 Lumbago with sciatica, unspecified side; G89.29 Other chronic pain; Z85.3 Personal history of malignant neoplasm of breast; Z87.891 Personal history of nicotine dependence; Z92.3 Personal history of irradiation; Z92.21 Personal history of antineoplastic chemotherapy; Z96.641 Presence of right artificial hip joint; Z90.710 Acquired absence of both cervix and uterus; Z99.81 Dependence on supplemental oxygen; Z88.2 Allergy status to sulfonamides; Z98.1 Arthrodesis status
CPT/HCPCS: 70450; 71046; 72125; 96360; 97161; 97165; 97530; 99285; G0378; J1642; G0480

== ENCOUNTER → 2018-08-18 | Outpatient (CLI) | payer OTHER, BC | LOC: FIMAGING 07:49 | PROVIDERS: ATTEND Internal Medicine | DX: C34.90 Malignant neoplasm of unspecified part of unspecified bronchus or lung (principal); M51.36 Other intervertebral disc degeneration, lumbar region; Z98.1 Arthrodesis status; Z92.3 Personal history of irradiation; Z92.21 Personal history of antineoplastic chemotherapy ==

== ENCOUNTER 2018-10-01 16:44 | Observation (INO) | payer OTHER, BC | END 2018-10-02 11:20 | disposition home health service (06) | LOC: F2N 20:12 ==